=== PATIENT | female | born 1940 | race Hispanic/Latino ===

== ENCOUNTER 2016-05-10 23:46 | Observation (INO) | payer MEDICARE ==
[2016-05-10 23:51] VITALS: BMI 25.7
--- NOTE | 2016-05-10 23:51 | ED PDOC ---
Arrival/HPI - General Time Seen by Provider: 05/10/16 23:48 Historian: Patient - History of Present Illness Narrative History of Present Illness (Text): 05/10/16 23:51 Marisol Dsouza is a 75 year old female, whose past medical history includes CAD with 3 cardiac stents, Type 2 diabetes, hypertension, hyperlipidemia, hyperparathyroidism, and cholecystectomy, who presents to the Emergency department accompanied by family complaining of chest pain. Patient states tonight she began experiencing mid-sternal chest pain radiating to her left shoulder, arm, and neck with associated palpitations. Patient notes she experienced similar symptoms earlier this week which resolved on its own. Patient denies any fever, chills, shortness of breath, nausea, vomiting, diarrhea, urinary symptoms, back pain, headache, dizziness, or any other complaints. PMD: Dr. Antoine Marcelo Analog Circuit Designer: Dr. Frederick Molina Time/Duration: Other (tonight) Symptom Onset: Gradual Symptom Course: Unchanged Activities at Onset: Rest, Light Context: Home Past Medical History - Provider Review Nursing Documentation Reviewed: Yes - Infectious Disease Hx of Infectious Diseases: None - Tetanus Immunization Tetanus Immunization: Unknown - Cardiac Hx Pacemaker: No - Neurological Hx Paralysis: No - HEENT Hx Cataracts: Yes (rt eye) Hx Epistaxis: Yes ("once in a while") Hx Glaucoma: Yes - Renal Hx Kidney Stones: Yes - Endocrine/Metabolic Hx Hyperthyroidism: Yes - Hematological/Oncological Hx Blood Transfusions: No Hx Blood Transfusion Reaction: No - Musculoskeletal/Rheumatological Hx Musculoskeletal Disorders: Yes (ARTHRITIS) - Psychiatric Hx Emotional Abuse: No Hx Physical Abuse: No Hx Substance Use: No - Surgical History Hx Cardiac Catheterization: Yes Hx Cholecystectomy: Yes Hx Coronary Stent: Yes Hx Hysterectomy: Yes - Anesthesia Hx Anesthesia Reactions: No Hx Malignant Hyperthermia: No - Suicidal Assessment Feels Threatened In Home Enviroment: No Family/Social History - Physician Review Nursing Documentation Reviewed: Yes Family/Social History: No Known Family HX Smoking Status: Never Smoked Hx Alcohol Use: No Hx Substance Use: No Hx Substance Use Treatment: No Allergies/Home Meds Allergies/Adverse Reactions: Allergies diltiazem HCl [From Cardizem] Adverse Reaction (Severe, Verified 05/10/16 23:52) HEADACHE nitroglycerin [From Nitro-Dur] Adverse Reaction (Severe, Verified 05/10/16 23:52 ) HEADACHE aspirin Adverse Reaction (Unknown, Verified 05/10/16 23:52) AVOIDS MED UNKNOWN ANTIBIOTIC Allergy (Uncoded 05/10/16 23:52) RASH Home Medications: Home Meds Medication Instructions Recorded Confirmed Atorvastatin Calcium [Lipitor] 20 mg PO DIN 04/08/13 05/11/16 Fenofibrate [Lofibra] 160 mg PO DIN 04/08/13 05/11/16 Dexlansoprazole [Dexilant] 60 mg PO DAILY 10/25/15 05/11/16 Glimepiride 1 mg PO BID 10/26/15 05/11/16 amLODIPine [Norvasc] 5 mg PO QAM 10/26/15 05/11/16 Cholecalciferol (Vitamin D3) 2,000 unit PO DAILY 05/11/16 05/11/16 [Vitamin D3] Lactobacillus Rhamnosus GG 1 each PO DAILY 05/11/16 05/11/16 [Culturelle] Lisinopril [Zestril] 10 mg PO DAILY 05/11/16 05/11/16 Methylcellulose [Citrucel] 500 mg PO DAILY 05/11/16 05/11/16 Simethicone [Gas-X] 125 mg PO BID 05/11/16 05/11/16 Review of Systems - Physician Review All systems were reviewed & negative as marked: Yes - Review of Systems Constitutional: Normal. absent: Fevers Eyes: Normal ENT: Normal Respiratory: Normal. absent: SOB, Cough Cardiovascular: Chest Pain, Palpitations Gastrointestinal: Normal. absent: Abdominal Pain, Diarrhea, Nausea, Vomiting Genitourinary Female: Normal. absent: Dysuria, Frequency, Hematuria, Urine Output Changes Musculoskeletal: Normal. absent: Back Pain, Neck Pain Skin: Normal. absent: Rash Neurological: Normal. absent: Headache, Dizziness Endocrine: Normal Hemo/Lymphatic: Normal Psychiatric: Normal Physical Exam Vital Signs Reviewed: Yes Vital Signs Temp Pulse Resp BP Pulse Ox 05/11/16 02:42 82 16 150/79 98 05/11/16 00:40 83 16 156/81 H 97 05/10/16 23:56 98.2 F 88 14 162/89 H 98 Temperature: Afebrile Blood Pressure: Normal Pulse: Regular Respiratory Rate: Normal Appearance: Positive for: Well-Appearing, Non-Toxic, Comfortable Pain Distress: None Mental Status: Positive for: Alert and Oriented X 3 - Systems Exam Head: Present: Atraumatic, Normocephalic Pupils: Present: PERRL Extroacular Muscles: Present: EOMI Conjunctiva: Present: Normal Mouth: Present: Moist Mucous Membranes Neck: Present: Normal Range of Motion Respiratory/Chest: Present: Clear to Auscultation, Good Air Exchange. No: Respiratory Distress, Accessory Muscle Use Cardiovascular: Present: Regular Rate and Rhythm, Normal S1, S2. No: Murmurs Abdomen: Present: Normal Bowel Sounds. No: Tenderness, Distention, Peritoneal Signs Back: Present: Normal Inspection Upper Extremity: Present: Normal Inspection. No: Cyanosis, Edema Lower Extremity: Present: Normal Inspection. No: Edema Neurological: Present: GCS=15, CN II-XII Intact, Speech Normal Skin: Present: Warm, Dry, Normal Color. No: Rashes Psychiatric: Present: Alert, Oriented x 3, Normal Insight, Normal Concentration Medical Decision Making ED Course and Treatment: 05/10/16 23:51 Impression: 75 year old female complaining of chest pain and palpitations tonight. Plan: -- EKG -- CXR -- Labs, cardiac enzymes, D-dimer -- UA -- Reassess and disposition Prior Visits: Notes and results from previous visits were reviewed. On 10/28/2015, pt had cardiac catheterization performed with 2 stents placed. Progress Notes: Reviewed EKG, sinus tachycardia at 103 bpm. Non-specific ST/T wave changes. 05/11/16 01:26 Reviewed radiology, Chest X-ray shows no active disease. 05/11/16 01:[address] Porter, covering for Dr. Estrada, who is aware and agrees with plan. Pt will go to Telemetry observation for chest pain. Case discussed with medical education specialist python django developer, who is aware and agrees with plan. Pt is no acute distress. Discussed results and hospital observation plan with pt , who is aware and verbalizes understanding. 05/13/16 19:34 - Lab Interpretations Lab Results: 05/11/16 00:30 05/11/16 00:30 Lab Results 05/11/16 00:30: WBC 5.3, RBC 4.38, Hgb 13.9, Hct 40.5, MCV 92.5, MCH 31.7, MCHC 34.3, RDW 12.7, Plt Count 194, MPV 10.6, Gran % 52.3, Lymph % (Auto) 39.6 H, [place] % (Auto) 7.3 H, Eos % (Auto) 0.6 L, Baso % (Auto) 0.2, Gran # 2.79, Lymph # 2.1, Bates # 0.4, Eos # 0.0, Baso # 0.01, D-Dimer, Quantitative 0.30, Sodium 136, Potassium 3.4 L, Chloride 100, Carbon Dioxide 29, Anion Gap 10, BUN 23 H, Creatinine 0.8, Est GFR ( Amer) > 60, Est GFR (Non-Af Amer) > 60, Random Glucose 241 H, Calcium 10.0, Magnesium 1.5 L, Total Bilirubin 0.4, AST 24, ALT 22, Alkaline Phosphatase 55, Lactate Dehydrogenase 350, Total Creatine Kinase 35 , Troponin I < 0.01, Total Protein 6.8, Albumin 3.8, Globulin 3.0, Albumin/ Globulin Ratio 1.3 I have reviewed the lab results: Yes - RAD Interpretation Narrative RAD Interpretations (Text): Chest X-ray shows no active disease. Radiology Orders: 05/10/16 23:59 CHEST PORTABLE [RAD] Stat Criminalist: ED Physician - EKG Interpretation Interpreted by ED Physician: Yes Type: 12 lead EKG - Medication Orders Current Medication Orders: Discontinued Medications [facility]odip[facility]) [facility] [place] [facility] Admin: 05/11/16 10:49 Dose: Not Given Non-Admin Reason: Patient in Cardiology Atorvastatin Calcium (Lipitor) 20 mg PO DIN [facility] Last Admin: 05/11/16 18:11 Dose: 20 MG Atropine Sulfate (Atropine) Confirm Administered Dose 1 mg .ROUTE .STK-MED ONE Stop: 05/11/16 09:34 Last Admin: 05/11/16 11:09 Dose: Bivalirudin (Angiomax) Confirm Administered Dose 250 mg IV .STK-MED ONE Stop: 05/11/16 09:35 Last Admin: 05/11/16 11:09 Dose: Cholecalciferol (Vitamin D) 2,000 iu PO DAILY [facility] Last Admin: 05/11/16 10:49 Dose: Not Given Non-Admin Reason: Patient in Cardiology Fenofibrate (Tricor) 145 mg PO DIN [facility] Last Admin: 05/11/16 18:11 Dose: 145 MG Fentanyl (Fentanyl) Confirm Administered Dose 100 mcg .ROUTE .STK-MED ONE Stop: 05/11/16 09:36 Last Admin: 05/11/16 10:29 Dose: 100 MCG Comments: Dr. Frederick Molina adm. Fentnayl 50 mcg IV @ 1029, an additional dose of Fentanyl 50 mcg IV was given @ 1040 MAR Pain Assessment Document 05/11/16 10:29 KPA (Rec: 05/11/16 11:10 KPA [facility] [id number]) Pain Reassessment Is this a pain reassessment? No Sleep Is patient sleeping during reassessment? No Presence of Pain Presence of Pain Yes Fentanyl (Fentanyl) Confirm Administered Dose 100 mcg .ROUTE .STK-MED ONE Stop: 05/11/16 10:27 Last Admin: 05/11/16 11:11 Dose: Magnesium Sulfate 2 gm/ Sodium (Chloride) 104 mls @ 102 mls/hr IVPB ONCE ONE Stop: 05/11/16 05:01 Last Admin: 05/11/16 04:28 Dose: 102 MLS/HR eMAR Start Stop Document 05/11/16 04:28 SBO (Rec: 05/11/16 04:29 SBO [id number]) Intravenous Solution Start Date 05/11/16 Start Time 04:29 End Date 05/11/16 End time 05:30 Total Infusion Time 61 Heparin Sodium (Porcine) (Heparin 1000 Units/500 Ml Ns) Confirm Administered Dose 1,500 mls @ ud IV .STK-MED ONE Stop: 05/11/16 09:35 Sodium Chloride (Sodium Chloride 0.9%) 1,000 mls @ 100 mls/hr IV .Q10H [facility] Stop: 05/11/16 16:00 Last Admin: 05/11/16 11:51 Dose: Insulin Human Lispro (Humalog Low) 0 units SC ACHS MEGAN PRN Reason: Protocol Last Admin: 05/11/16 16:30 Dose: 3 UNITS MAR Blood Glucose Document 05/11/16 16:30 RKO (Rec: 05/11/16 18:13 RKO [id number]) Blood Glucose Finger Stick Blood Glucose (70-120) 264 Subcutaneous Administrations Document 05/11/16 16:30 RKO (Rec: 05/11/16 18:13 RKO [id number]) Injection Site MAR Injection Site Right Arm Charges for Administration # of Subcutaneous Administrations 1 Iodixanol (Visipaque 320 Mg/Ml 100 Ml) Confirm Administered Dose 100 ml IV .STK- MED ONE Stop: 05/11/16 09:36 Iodixanol (Visipaque 320 Mg/Ml 200 Ml) Confirm Administered Dose 200 ml IV .K- MED ONE Stop: 05/11/16 09:36 Iohexol (Omnipaque 350mg/Ml 50 Ml) Confirm Administered Dose 50 ml .ROUTE .K- MED ONE Stop: 05/11/16 09:36 Lidocaine HCl (Lidocaine 2% 20ml Vial) Confirm Administered Dose 20 ml .ROUTE .K-MED ONE Stop: 05/11/16 09:34 Lisinopril (Zestril) 10 mg PO DAILY [facility] Last Admin: 05/11/16 10:49 Dose: Not Given Non-Admin Reason: Patient in Cardiology Magnesium Oxide (Mag-Ox) 400 mg PO STAT STA Stop: 05/11/16 01:24 Last Admin: 05/11/16 01:38 Dose: 400 MG Midazolam HCl (Versed Inj) Confirm Administered Dose 2 mg .ROUTE .K-MED ONE Stop: 05/11/16 09:35 Last Admin: 05/11/16 10:29 Dose: 2 MG Comments: Dr. Frederick Molina adm. Versed 2 mg IV @ 1029 Midazolam HCl (Versed Inj) Confirm Administered Dose 2 mg .ROUTE .K-MED ONE Stop: 05/11/16 10:26 Last Admin: 05/11/16 10:40 Dose: 2 MG Non-Formulary Medication (Lactobacillus Rhamnosus Gg [Culturelle]) 1 each PO DAILY [facility] Pantoprazole Sodium (Protonix Ec Tab) 40 mg PO ACB [facility] Last Admin: 05/11/16 08:23 Dose: 40 MG Phenylephrine HCl (Phenylephrine Inj) Confirm Administered Dose 10 mg .ROUTE .STK-MED ONE Stop: 05/11/16 09:43 Potassium Chloride (K-Dur 20 Meq Er Tab) 20 meq PO STAT STA Stop: 05/11/16 01:25 Last Admin: 05/11/16 01:38 Dose: 20 MEQ Potassium Chloride (Potassium Chloride Oral Soln) 40 meq PO ONCE ONE Stop: 05/11/16 03:01 Last Admin: 05/11/16 04:28 Dose: 40 MEQ Prasugrel (Effient) 10 mg PO DAILY [facility] Last Admin: 05/11/16 09:56 Dose: 10 MG Simethicone (Mylicon Liq) 125 mg PO BID [facility] Last Admin: 05/11/16 18:12 Dose: 125 MG - Leigh Statement The provider has reviewed the documentation as recorded by the Leigh Estrada Provider Attestation: All medical record entries made by the Leigh were at my direction and personally dictated by me. I have reviewed the chart and agree that the record accurately reflects my personal performance of the history, physical exam, medical decision making, and the department course for this patient. I have also personally directed, reviewed, and agree with the discharge instructions and disposition. Disposition/Present on Arrival - Present on Arrival Any Indicators Present on Arrival: No History of DVT/PE: No History of Uncontrolled Diabetes: No Urinary Catheter: No History Surgical Site Infection Following: None - Disposition Have Diagnosis and Disposition been Completed?: Yes Diagnosis: Chest pain Disposition: HOSPITALIZED Disposition Time: 01:50 Condition: GOOD
[2016-05-11 00:43] LABS: ADD MANUAL DIFF? NO
[2016-05-11 00:47] LABS: BASO # 0.01 K/mm3 (0.0-2.0); BASO % 0.2 % (0.0-3.0); EOS % 0.6 % (1.5-5.0); GRAN # 2.79 (1.4-6.5); GRAN % 52.3 % (50.0-68.0); HEMATOCRIT 40.5 % (36.0-48.0); LYMPH # 2.1 (1.2-3.4); LYMPH % 39.6 % (22.0-35.0); MEAN CELL VOLUME 92.5 fL (80.0-105.0); MEAN CORPUSCULAR HEMOGLOBIN 31.7 pg (25.0-35.0); MEAN CORPUSCULAR HGB CONC 34.3 g/dl (31.0-37.0); MEAN PLATELET VOLUME 10.6 fl (7.0-11.0); MONO # 0.4 (0.1-0.6); MONO % 7.3 % (1.0-6.0); PLATELET COUNT 194 10^3/uL (120.0-450.0); RED CELL DISTRIBUTION WIDTH 12.7 % (11.5-14.5); WHITE BLOOD COUNT 5.3 10^3/ul (4.5-11.0)
[2016-05-11 01:05] LABS: ALB/GLOB RATIO 1.3 (1.1-1.8); ALKALINE PHOSPHATASE 55 U/L (38-133); ALT/SGPT 22 U/L (7-56); AST/SGOT 24 U/L (15-39); BILIRUBIN,TOTAL 0.4 mg/dL (0.2-1.3); BLOOD UREA NITROGEN 23 mg/dL (7-21); CARBON DIOXIDE 29 mmol/L (21-33); CHLORIDE 100 mmol/L (98-107); GFR AFRICAN-AMERICAN > 60; GLUCOSE,RANDOM 241 mg/dL (70-110); MAGNESIUM 1.5 mg/dL (1.7-2.2); POTASSIUM 3.4 mmol/L (3.6-5.0); SODIUM 136 mmol/L (132-148); TOTAL PROTEIN 6.8 g/dL (5.8-8.3)
[2016-05-11 01:21] LABS: TROPONIN I < 0.01 ng/mL
[2016-05-11] MEDS ORDERED: Magnesium Oxide 400 mg Tab UD PO STA (01:23)
[2016-05-11] MEDS ORDERED: Potassium Chloride 20 mEq ER Tab PO STA (01:24)
--- NOTE | 2016-05-11 02:55 | CP.PCM.HP ---
History of Present Illness - History of Present Illness History of Present Illness: CC: Chest pain, shortness of breath HPI: This is a 75 yo F with PMH CAD s/p 3 stents, Type 2 diabetes, HTN , HLD, hyperparathyroidism, and cholecystectomy who presents with complaint of left-sided chest pain radiating into her left shoulder, arm, and neck, with some shortness of breath and dizziness. Per patient, she experienced similar chest pain one night prior, but it self resolved. Chest pain returned this AM however, and progressively worsened throughout the day, with only some relief provided with PO tylenol. Patient reports that this evening, the pain became worse, and she became short of breath and dizzy, making her concerned that she was having a heart issue and prompting her to present to the ED. At time of exam, patient notes some chest discomfort at the same site persisting, but is overall improved. Denies fevers/chills, diaphoresis, vision changes, dysphagia , pain with breathing, nausea/emesis, abdominal pain, diarrhea, dysuria/ hematuria, focal weakness, lower extremity swelling/pain. Does admit to some claudication pains in her legs when walking for a prolonged period. PMH: As above PSH: Coronary stent placement x3, Cholecystectomy SHx: Former smoker (quit ~50 yrs prior, 1-4 ppd for 10-15 years), Rare alcohol ( social drinker, none in recent years), denies illicits/IVDA PMD: Dr. Estrada Present on Admission - Present on Admission Any Indicators Present on Admission: No History of DVT/PE: No History of Uncontrolled Diabetes: No Review of Systems - Constitutional Constitutional: absent: Chills, Fever - EENT Eyes: absent: Blurred Vision, Change in Vision, Loss of Peripheral Vision, Loss of Vision Ears: Dizziness (only this evening when chest pain worsened, none at time of exam) Nose/Mouth/Throat: absent: Dysphagia, Sore Throat, Neck Pain - Cardiovascular Cardiovascular: Chest Pain at Rest (self-resolved episode 1 day prior, new progressively worsening episode today, partial relief with PO tylenol, improved but not completely resolved at time of exam), Dyspnea (acute shortness of breath concurrent with dizziness and worsened chest pain, resolved prior to exam ), Pain Radiating to Arm/Neck/Jaw (radiates to left shoulder/auxilla/arm and neck), Rapid Heart Rate. absent: Diaphoresis, Edema, Leg Edema, Syncope Additional comments: near-syncope, no syncope - Respiratory Respiratory: Dyspnea (acute shortness of breath concurrent with dizziness and worsened chest pain, resolved prior to exam). absent: Cough, Pain on Inspiration - Gastrointestinal Gastrointestinal: absent: Abdominal Pain, Constipation, Diarrhea, Dysphagia, Nausea, Vomiting - Genitourinary Genitourinary: Urinary Frequency (longstanding, unchanged). absent: Difficulty Urinating, Dysuria, Flank Pain, Hematuria - Musculoskeletal Musculoskeletal: Radiating Pain into Limb (left-sided chest pain radiating into left arm). absent: Neck Pain, Numbness - Integumentary Integumentary: absent: Pruritus, Rash - Neurological Neurological: Dizziness. absent: Confusion, Numbness, Focal Weakness, Loss of Vision, Syncope, Vertigo, Weakness, Other Visual Disturbances Additional comments: Near-syncope, but no syncope - Psychiatric Psychiatric: Anxiety - Endocrine Endocrine: absent: Fatigue Past Patient History - Infectious Disease Hx of Infectious Diseases: None - Tetanus Immunizations Tetanus Immunization: Unknown - Past Social History Smoking Status: Never Smoked - CARDIAC Hx Pacemaker: No - PULMONARY Hx Respiratory Disorders: No - NEUROLOGICAL Hx Paralysis: No - HEENT Hx Cataracts: Yes (rt eye) Hx Epistaxis: Yes ("once in a while") Hx Glaucoma: Yes - RENAL Hx Kidney Stones: Yes - ENDOCRINE/METABOLIC Hx Hyperthyroidism: Yes - HEMATOLOGICAL/ONCOLOGICAL Hx Blood Transfusions: No Hx Blood Transfusion Reaction: No - INTEGUMENTARY Hx Dermatological Problems: No - MUSCULOSKELETAL/RHEUMATOLOGICAL Hx Musculoskeletal Disorders: Yes (ARTHRITIS) - GASTROINTESTINAL Hx Gastrointestinal Disorders: No - GENITOURINARY/GYNECOLOGICAL Hx Genitourinary Disorders: No - PSYCHIATRIC Hx Emotional Abuse: No Hx Physical Abuse: No Hx Substance Use: No - SURGICAL HISTORY Hx Cardiac Catheterization: Yes Hx Cholecystectomy: Yes Hx Coronary Stent: Yes Hx Hysterectomy: Yes - ANESTHESIA Hx Anesthesia Reactions: No Hx Malignant Hyperthermia: No Meds Allergies/Adverse Reactions: Allergies Allergy/AdvReac Type Severity Reaction Status Date / Time diltiazem HCl [From Cardizem] AdvReac Severe HEADACHE Verified 05/10/16 23:52 nitroglycerin AdvReac Severe HEADACHE Verified 05/10/16 23:52 [From Nitro-Dur] aspirin AdvReac Unknown AVOIDS MED Verified 05/10/16 23:52 UNKNOWN ANTIBIOTIC Allergy RASH Uncoded 05/10/16 23:52 Physical Exam - Constitutional Appears: Well, Non-toxic, No Acute Distress - Head Exam Head Exam: ATRAUMATIC, NORMAL INSPECTION, NORMOCEPHALIC - Eye Exam Eye Exam: EOMI, Normal appearance. absent: Conjunctival injection, Scleral icterus Pupil Exam: absent: Irregular, Unequal - ENT Exam ENT Exam: Mucous Membranes Moist - Respiratory Exam Respiratory Exam: Clear to Auscultation Bilateral, NORMAL BREATHING PATTERN. absent: Accessory Muscle Use, Chest Wall Tenderness, Decreased Breath Sounds, Rales, Rhonchi, Wheezes - Cardiovascular Exam Cardiovascular Exam: Tachycardia, REGULAR RHYTHM, +S1, +S2. absent: Bradycardia , Irregular Rhythm, RRR, +S4 Additional comments: rapid rate regular rhythm - GI/Abdominal Exam GI & Abdominal Exam: Normal Bowel Sounds, Soft. absent: Diminished Bowel Sounds , Distended, Firm, Hyperactive Bowel Sounds, Hypoactive Bowel Sounds, Organomegaly, Rigid, Tenderness - Extremities Exam Extremities exam: Positive for: normal inspection, pedal pulses present. Negative for: calf tenderness, joint swelling, pedal edema, tenderness - Back Exam Back exam: NORMAL INSPECTION. absent: rash noted - Neurological Exam Neurological exam: Alert, Oriented x3 Additional comments: answering questions and following commands appropriately - Psychiatric Exam Psychiatric exam: Normal Affect, Normal Mood - Skin Skin Exam: Dry, Intact, Normal Color, Warm Results - Vital Signs Recent Vital Signs: Last Vital Signs Temp 98.2 F 05/10/16 23:56 Pulse 82 05/11/16 02:42 Resp 16 05/11/16 02:42 BP 150/79 05/11/16 02:42 Pulse Ox 98 05/11/16 02:42 - Labs Result Diagrams: 05/11/16 00:30 05/11/16 00:30 Labs: Laboratory Results - last 24 hr 05/11/16 00:30 WBC 5.3 RBC 4.38 Hgb 13.9 Hct 40.5 MCV 92.5 MCH 31.7 MCHC 34.3 RDW 12.7 Plt Count 194 MPV 10.6 Gran % 52.3 Lymph % (Auto) 39.6 H [place] % (Auto) 7.3 H Eos % (Auto) 0.6 L Baso % (Auto) 0.2 Gran # 2.79 Lymph # 2.1 [place] # 0.4 Eos # 0.0 Baso # 0.01 D-Dimer, Quantitative 0.30 Sodium 136 Potassium 3.4 L Chloride 100 Carbon Dioxide 29 Anion Gap 10 BUN 23 H Creatinine 0.8 Est GFR ( Amer) > 60 Est GFR (Non-Af Amer) > 60 Random Glucose 241 H Calcium 10.0 Magnesium 1.5 L Total Bilirubin 0.4 AST 24 ALT 22 Alkaline Phosphatase 55 Lactate Dehydrogenase 350 Total Creatine Kinase 35 Troponin I < 0.01 Total Protein 6.8 Albumin 3.8 Globulin 3.0 Albumin/Globulin Ratio 1.3 Assessment & Plan - Assessment and Plan (Free Text) Assessment: This is a 75 yo F with PMH CAD s/p 3 stents, Type 2 diabetes, HTN, HLD , hyperparathyroidism, and cholecystectomy who presents with complaint of left- sided chest pain radiating into her left shoulder, arm, and neck, with some shortness of breath and dizziness. She is being admitted for ACS rule-out vs anxiety vs hypoglycemic episode. Plan: 1) Left-sided chest pain with radiation and shortness of breath -ACS vs PE vs costochondritis vs hypoglycemic episode vs Pneumonia, may be element of anxiety superimposed as well -Chest pain not reproducible on exam, so less likely costochondritis, but some alleviation of pain with tylenol -D-Dimer 0.30, no lower extremity swelling/erythema/tenderness, and no prior history of DVT/PE, so PE less likely -No leukocytosis, afebrile, and unremarkable CXR, unlikely pneumonia -Trop x1 negative, trending 2 more q8 -EKG in ED notable for sinus tachy at 103, QTc prolongation at 495, no abnormal- appearing intervals; repeat EKG in AM -Cardio consulted, appreciate any recs -No ASA in the ED due to stated allergy to ASA -Continue home cardiac Meds -Glucose at time of acutely worsening symptoms not checked, but patient reports history of hypoglycemic episodes; glucose 241 on admission, hold home oral hypoglycemics in favor of sliding scale insulin and accuchecks ACHS -heart healthy consistent carb diet 2) Electrolyte disturbances -mild hypokalemia of 3.4, hypomagnesemia at 1.5 -repleting both, recheck on AM labs and replete further as needed 3) DM2 -hold home oral hypoglycemic in favor of sliding scale insulin and accuchecks ACHS -Hx of hypoglycemic episodes per patient, glucose 241 on admit 3) HTN -continue home antihypertensives 4) HLD -continue home statin 5) Hyperparathyroid -Normal calcium levels on admission labs, f/u AM labs Dispo: Telemetry obs admission, pending repeat trops and EKG, pending Cardio's input FEN: Heart-healthy consistent carb diet Access: Peripheral IV Consults: Cardio Ppx: Protonix for GI, SCDs for DVT Patient reviewed and discussed with attending, Dr. Porter. - Date & Time Date: 05/11/16 Time: 03:14 Decision To Admit - Pt Status Changed To: Hospital Disposition Of: Observation - . Bed Request Type: Telemetry
[2016-05-11] MEDS ORDERED: Potassium Chloride 40 mEq/30 ml LIQ UD PO ONE (03:00)
[2016-05-11] MEDS ORDERED: Magnesium Sulfate 2 GM in Sodium Chloride 0.9% 100 ML IVPB ONE (04:00)
[2016-05-11 06:03] VITALS: O2SAT 97
[2016-05-11] MEDS ORDERED: Pantoprazole 40 mg EC Tab PO SCH (07:30)
[2016-05-11 07:55] LABS: ADD MANUAL DIFF? NO
[2016-05-11 08:07] LABS: BASO # 0.01 K/mm3 (0.0-2.0); BASO % 0.2 % (0.0-3.0); EOS # 0.1 (0.0-0.7); EOS % 0.9 % (1.5-5.0); GRAN # 2.77 (1.4-6.5); GRAN % 50.8 % (50.0-68.0); HEMATOCRIT 40.7 % (36.0-48.0); LYMPH # 2.2 (1.2-3.4); LYMPH % 39.8 % (22.0-35.0); MEAN CELL VOLUME 92.7 fL (80.0-105.0); MEAN CORPUSCULAR HGB CONC 33.4 g/dl (31.0-37.0); MEAN PLATELET VOLUME 10.8 fl (7.0-11.0); MONO # 0.5 (0.1-0.6); MONO % 8.3 % (1.0-6.0); PLATELET COUNT 220 10^3/uL (120.0-450.0); RED CELL DISTRIBUTION WIDTH 12.8 % (11.5-14.5); WHITE BLOOD COUNT 5.5 10^3/ul (4.5-11.0)
[2016-05-11 08:28] LABS: ALB/GLOB RATIO 1.3 (1.1-1.8); ALKALINE PHOSPHATASE 55 U/L (38-133); ALT/SGPT 19 U/L (7-56); AST/SGOT 22 U/L (15-39); BILIRUBIN,TOTAL 0.6 mg/dL (0.2-1.3); BLOOD UREA NITROGEN 19 mg/dL (7-21); CALCIUM 10.3 mg/dL (8.4-10.5); CARBON DIOXIDE 28 mmol/L (21-33); CHLORIDE 104 mmol/L (98-107); GFR AFRICAN-AMERICAN > 60; GLUCOSE,RANDOM 140 mg/dL (70-110); MAGNESIUM 2.4 mg/dL (1.7-2.2); PHOSPHOROUS 2.9 mg/dL (2.5-4.5); POTASSIUM 4.7 mmol/L (3.6-5.0); SODIUM 141 mmol/L (132-148); TOTAL PROTEIN 7.2 g/dL (5.8-8.3)
[2016-05-11 08:44] LABS: TROPONIN I < 0.01 ng/mL
[2016-05-11] MEDS ORDERED: Lidocaine 2% Inj (20ml) ONE (09:33)
[2016-05-11] MEDS ORDERED: Midazolam 2 MG/2 ML VIAL ONE ×2 (09:34→10:25)
[2016-05-11] MEDS ORDERED: Iodixanol 320 MG/ML 200 ML BOTTLE IV ONE (09:35)
[2016-05-11] MEDS ORDERED: Iodixanol 320 MG/ML 100 ML BOTTLE IV ONE (09:35)
[2016-05-11] MEDS ORDERED: Iohexol 350mgl/ml 50 ML ONE (09:35)
[2016-05-11] MEDS ORDERED: Phenylephrine 10 mg/ml Inj ONE (09:42)
--- NOTE | 2016-05-11 09:48 | RAD ---
HISTORY: cp COMPARISON: No prior. FINDINGS: LUNGS: No active pulmonary disease. PLEURA: No significant pleural effusion identified, no pneumothorax apparent. CARDIOVASCULAR: Normal. OSSEOUS STRUCTURES: No significant abnormalities. VISUALIZED UPPER ABDOMEN: Normal. OTHER FINDINGS: None. IMPRESSION: No active disease.
[2016-05-11] MEDS ORDERED: LACTOBACILLUS RHAMNOSUS GG PO SCH (10:00)
--- NOTE | 2016-05-11 10:08 | CARD ---
APPROVED REPORT EKG Measurement Heart [id number] <Conclusion> Sinus tachycardiaSmall q waves 2,3,F SSTW changes Prolonged QTc.
--- NOTE | 2016-05-11 10:26 | CARD ---
APPROVED REPORT EKG Measurement Heart [id number] <Conclusion> Normal sinus rhythm ST elevations 2.3.F, no change c/w ECG 05/10/16
[2016-05-11] MEDS: Insulin Lispro (humaLOG) LOW Coverage SC SCH ×3 (10:48→16:30)
[2016-05-11] MEDS: Simethicone 40 mg/0.6 ml Liquid (30 ml) PO SCH ×2 (10:49→18:12)
[2016-05-11] MEDS ORDERED: Sodium Chloride 0.9% 1,000 ML IV SCH (11:15)
--- NOTE | 2016-05-11 11:24 | CARDCATH ---
PROCEDURE DATE: 05/11/2016 HISTORY OF PRESENT ILLNESS: The patient is a 75-year-old woman with multiple cardiac risk factors an d multiple PTCA and stents in the past who presents with recurrence of angina. Myocardial infarction was ruled out. Because of her ongoing symptoms including symptoms at rest, cardiac catheterization was recommended. PROCEDURE: Left heart catheterization with coronary angiography and left ventriculogram. The right femoral artery was cannulated with a 6-Icelandic sheath. There were no complications. The findings on catheterization revealed a left ventricle that contracted normally. Estimated ejecti on fraction is 60%. Her coronary anatomy revealed the left main artery was unremarkable. The LAD revealed diffuse intimal irregularities with multiple patent stents. The mid portion of the LAD revealed an eccentric 50% stenosis in the mid LAD stent. The diagonal vessels were free of significant disease. The circumflex artery and obtuse marginal branches were unremarkable. The RCA was selectively cannulized and found to be a dominant vessel. The RCA revealed intimal irreg ularities without significant stenosis. Angio-Seal was used to close the femoral artery site. The patient tolerated the procedure well. In summary, the procedure revealed normal left ventricular function. A 50% in-stent stenosis of mid left anterior descending. The rest of the stents were widely patent Given these findings, the patient's chest pain is not of cardiac origin. An investigation into a non cardiac source of chest pain would be appropriate. We will continue her on a cardiac risk reduction program. Jet Molina MD cc: [id number] TT: 05/11/2016 11:23:58 en
[2016-05-11 17:42] VITALS: BP 144/71; PULSE 84; RESP 20; TEMP 97.9
--- NOTE | 2016-05-11 18:24 | CP.PCM.DIS ---
Provider - Provider Date of Admission: 05/11/16 01:49 Attending physician: Francisco Estrada MD Time Spent in preparation of Discharge (in minutes): 35 Hospital Course - Lab Results Lab Results: Most Recent Lab Values WBC 5.5 10^3/ul (4.5-11.0) 05/11/16 07:30 RBC 4.39 10^6/uL (3.5-6.1) 05/11/16 07:30 Hgb 13.6 gm/dL (12.0-16.0) 05/11/16 07:30 Hct 40.7 % (36.0-48.0) 05/11/16 07:30 MCV 92.7 fL (80.0-105.0) 05/11/16 07:30 MCH 31.0 pg (25.0-35.0) 05/11/16 07:30 MCHC 33.4 g/dl (31.0-37.0) 05/11/16 07:30 RDW 12.8 % (11.5-14.5) 05/11/16 07:30 Plt Count 220 10^3/uL (120.0-450.0) 05/11/16 07:30 MPV 10.8 fl (7.0-11.0) 05/11/16 07:30 Gran % 50.8 % (50.0-68.0) 05/11/16 07:30 Lymph % (Auto) 39.8 % (22.0-35.0) H 05/11/16 07:30 [place] % (Auto) 8.3 % (1.0-6.0) H 05/11/16 07:30 Eos % (Auto) 0.9 % (1.5-5.0) L 05/11/16 07:30 Baso % (Auto) 0.2 % (0.0-3.0) 05/11/16 07:30 Gran # 2.77 (1.4-6.5) 05/11/16 07:30 Lymph # 2.2 (1.2-3.4) 05/11/16 07:30 [place] # 0.5 (0.1-0.6) 05/11/16 07:30 Eos # 0.1 (0.0-0.7) 05/11/16 07:30 Baso # 0.01 K/mm3 (0.0-2.0) 05/11/16 07:30 D-Dimer, Quantitative 0.30 mg/L FEU (0-0.50) 05/11/16 00:30 Sodium 141 mmol/L (132-148) 05/11/16 07:30 Potassium 4.7 mmol/L (3.6-5.0) 05/11/16 07:30 Chloride 104 mmol/L (98-107) 05/11/16 07:30 Carbon Dioxide 28 mmol/L (21-33) 05/11/16 07:30 Anion Gap 14 (10-20) 05/11/16 07:30 BUN 19 mg/dL (7-21) 05/11/16 07:30 Creatinine 0.8 mg/dL (0.5-1.4) 05/11/16 07:30 Est GFR ( Amer) > 60 05/11/16 07:30 Est GFR (Non-Af Amer) > 60 05/11/16 07:30 POC Glucose (mg/dL) 264 mg/dL (65-110) H 05/11/16 15:55 Random Glucose 140 mg/dL (70-110) H 05/11/16 07:30 Hemoglobin A1c 7.4 % (4.2-6.5) H 05/11/16 07:30 Calcium 10.3 mg/dL (8.4-10.5) 05/11/16 07:30 Phosphorus 2.9 mg/dL (2.5-4.5) 05/11/16 07:30 Magnesium 2.4 mg/dL (1.7-2.2) H 05/11/16 07:30 Total Bilirubin 0.6 mg/dL (0.2-1.3) 05/11/16 07:30 AST 22 U/L (15-39) 05/11/16 07:30 ALT 19 U/L (7-56) 05/11/16 07:30 Alkaline Phosphatase 55 U/L (38-133) 05/11/16 07:30 Lactate Dehydrogenase 350 U/L (333-699) 05/11/16 00:30 Total Creatine Kinase 35 U/L (35-230) 05/11/16 00:30 Troponin I < 0.01 ng/mL 05/11/16 15:50 Total Protein 7.2 g/dL (5.8-8.3) 05/11/16 07:30 Albumin 4.0 g/dL (3.0-4.8) 05/11/16 07:30 Globulin 3.2 gm/dL 05/11/16 07:30 Albumin/Globulin Ratio 1.3 (1.1-1.8) 05/11/16 07:30 - Hospital Course Hospital Course: This is a 75 yo Female with PMH CAD s/p 3 stents, Type 2 diabetes, HTN , HLD, hyperparathyroidism, and cholecystectomy who presents with complaint of left-sided chest pain radiating into her left shoulder, arm, and neck, with some shortness of breath and dizziness. She was admitted for ACS rule-out. Patient experienced similar chest pain earlier this month, she went to primary care provider. She had pulled her muscle while using desire rowing machine during rehab. However the chest pain returned and had progressively worsened throughout the day, with some relief provided with PO Tylenol.Chest pain is reproducible on exam. 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 She was found to have patent stents, no new blockages and normal left ventricular function. Troponins were negative. Patient did not have leukocytosis , she was afebrile, and unremarkable CXR. EKG in ED was notable for sinus tachy at 103, QTc prolongation at 495, no abnormal-appearing intervals.Repeat EKG the following morning also showed sinus tachycardia, with prolong QTc, no abnormal intervals. She had mild hypokalemia of 3.4 and hypomagnesemia at 1.5, both were repleted. Patient is doing well. Discharge Instructions are to follow up with Dr. Estrada in 4-6 days. No new medications were given, she is to continue her home meds.If new symptoms occur, call primary care doctor or go to emergency department. Patient is aware of hospital course. Discharge instructions were discussed with patient in detail, she is in agreement. Discharge diagnosis is muscle strain, non cardiac Chest pain. Discharge Exam - Head Exam Head Exam: ATRAUMATIC, NORMAL INSPECTION, NORMOCEPHALIC - Eye Exam Eye Exam: Normal appearance - ENT Exam ENT Exam: Mucous Membranes Moist - Respiratory Exam Respiratory Exam: Chest Wall Tenderness, Clear to PA & Lateral, NORMAL BREATHING PATTERN. absent: Wheezes, Respiratory Distress, Stridor - Cardiovascular Exam Cardiovascular Exam: REGULAR RHYTHM. absent: Tachycardia, Diastolic murmur, Systolic Murmur - GI/Abdominal Exam GI & Abdominal Exam: Diminished Bowel Sounds, Normal Bowel Sounds, Soft, Unremarkable. absent: Distended, Firm, Tenderness - Extremities Exam Extremities exam: normal inspection - Neurological Exam Neurological exam: Alert, Oriented x3 - Skin Skin Exam: Dry, Intact, Normal Color, Warm Discharge Plan - Follow Up Plan Condition: GOOD Disposition: HOME/ ROUTINE Instructions: Chest Pain (DC), Chest Pain (GEN), Coronary Angioplasty (DC), Coronary Angioplasty (GEN) Additional Instructions: Discharge Instructions - follow up with Dr. Estrada in 4-6 days - Continue home meds - If new symptoms occur, call primary care doctor or go to emergency department Discharge diagnosis - Chest pain
== END 2016-05-11 19:18 | disposition home or self-care (01) ==
LOC: ED 23:46 → ERH 05-11 01:49 → 2RNO 05-11 02:53
PROVIDERS: ADMIT Internal Medicine; ATTEND Internal Medicine
DX: T82.855A Stenosis of coronary artery stent, initial encounter (principal); I25.118 Atherosclerotic heart disease of native coronary artery with other forms of angina pectoris; I10 Essential (primary) hypertension; E87.6 Hypokalemia; E83.42 Hypomagnesemia; E11.9 Type 2 diabetes mellitus without complications; E78.5 Hyperlipidemia, unspecified; E21.3 Hyperparathyroidism, unspecified; Z79.84 Long term (current) use of oral hypoglycemic drugs; Y83.8 Other surgical procedures as the cause of abnormal reaction of the patient, or of later complication, without mention of misadventure at the time of the procedure
CPT/HCPCS: 71010; 80053; 82550; 82948; 83036; 83615; 83735; 84100; 84484; 85025; 85378; 93005; 93458; 99152; 99285; C1760; C1769; C2629; G0378; J1644; J2250; J3010; J3475; J3480; J7040

== ENCOUNTER 2017-04-16 10:20 | Emergency (ER) | payer MEDICARE ==
[2017-04-16 10:20] VITALS: BMI 25.7
[2017-04-16 10:49] VITALS: TEMP 99.3
[2017-04-16] MEDS ORDERED: Sodium Chloride 0.9% 500 ML IV STA (11:11)
--- NOTE | 2017-04-16 11:22 | ED PDOC ---
Arrival/HPI - General Chief Complaint: Abdominal Pain Time Seen by Provider: 04/16/17 10:24 Historian: Patient - History of Present Illness Narrative History of Present Illness (Text): 04/16/17 11:21 A 76 year old female, whose past medical history includes diabetes, hypertension , hyperlipidemia, hyperparathyroidism, cholecystectomy and CAD with 3 stents, presents to the emergency department complaining of abdominal pain for the past month, worsening last night. Patient reports she had gallbladder removed 5 years ago and was seeing several gi doctors. . Patient has a scheduled CT with contrast in a week (04/24/17) and colonoscopy with Dr. Perez,. Patient denies any other complaints at this time. PMD: Dr. Estrada GI: Dr. Perez Practice Performance Manager: Dr. Molina 04/16/17 14:38 Time/Duration: Other (month, worsening last night) Symptom Onset: Sudden Symptom Course: Unchanged Activities at Onset: Rest Context: Home Past Medical History - Provider Review Nursing Documentation Reviewed: Yes - Infectious Disease Hx of Infectious Diseases: None - Tetanus Immunization Tetanus Immunization: Unknown - Reproductive Menopause: No - Cardiac Hx Hypertension: Yes - Pulmonary Hx Respiratory Disorders: Yes Hx Asthma: No Hx Bronchitis: No Hx Chronic Obstructive Pulmonary Disease (COPD): No Hx Emphysema: No Hx Pneumonia: Yes Hx Respiratory Aspiration: No Hx Respiratory Tract Infection: No Hx Sleep Apnea: No Hx Tuberculosis: No - Neurological Hx Paralysis: No - HEENT Hx Cataracts: Yes (rt eye) Hx Epistaxis: Yes ("once in a while") Hx Glaucoma: Yes - Renal Hx Kidney Stones: Yes - Hematological/Oncological Hx Blood Transfusions: No Hx Blood Transfusion Reaction: No - Integumentary Hx Dermatological Disorder: No Hx Basal Cell Carcinoma: No Hx Eczema: No Hx Melanoma: No Hx Psoriasis: No Hx Squamous Cell Carcinoma: No - Gastrointestinal Hx Gastrointestinal Disorders: Yes (bloating and gas) Hx Colostomy: No Hx Crohn's Disease: No Hx Diverticulitis: No Hx Gall Bladder Disease: Yes Hx Gastroesophageal Reflux: No Hx Gastrointestinal Ulcer: No Hx Ileostomy: No Hx Liver Failure: No Hx Pancreatitis: No HX Swallowing Problems: No - Genitourinary/Gynecological Hx Genitourinary Disorders: Yes Hx Hematuria: No Hx Incontinence: No Hx Prostate Problems: No Hx Sexually Transmitted Diseases: No Hx Urinary Tract Infection: Yes - Psychiatric Hx Substance Use: No - Anesthesia Hx Anesthesia Reactions: No Hx Malignant Hyperthermia: No Family/Social History - Physician Review Nursing Documentation Reviewed: Yes Family/Social History: No Known Family HX Smoking Status: Never Smoked Hx Alcohol Use: No Hx Substance Use: No Allergies/Home Meds Allergies/Adverse Reactions: Allergies diltiazem HCl [From Cardizem] Adverse Reaction (Severe, Verified 04/16/17 10:49) HEADACHE nitroglycerin [From Nitro-Dur] Adverse Reaction (Severe, Verified 04/16/17 10:49 ) HEADACHE aspirin Adverse Reaction (Unknown, Verified 04/16/17 10:49) AVOIDS MED UNKNOWN ANTIBIOTIC Allergy (Uncoded 05/10/16 23:52) RASH Home Medications: Home Meds Medication Instructions Recorded Confirmed Atorvastatin Calcium [Lipitor] 10 mg PO DIN 04/08/13 12/13/16 Fenofibrate [Lofibra] 160 mg PO DIN 04/08/13 05/11/16 Dexlansoprazole [Dexilant] 60 mg PO DAILY 10/25/15 05/11/16 Glimepiride 1 mg PO BID 10/26/15 05/11/16 amLODIPine [Norvasc] 5 mg PO QAM 10/26/15 05/11/16 Cholecalciferol (Vitamin D3) 2,000 unit PO DAILY 05/11/16 12/13/16 [Vitamin D3] Lactobacillus Rhamnosus GG 1 each PO DAILY 05/11/16 05/11/16 [Culturelle] Lisinopril [Zestril] 10 mg PO DAILY 05/11/16 05/11/16 Methylcellulose [Citrucel] 500 mg PO DAILY 05/11/16 05/11/16 Simethicone [Gas-X] 125 mg PO BID 05/11/16 05/11/16 Calcitonin,[place],Synthetic 200 iu NS DAILY 12/13/16 12/13/16 [Calcitonin-Marshall] Calcium Carb/Vitamin D3/Vit K1 1 tab PO DAILY 12/13/16 12/13/16 [Citracal Soft Chew] Fenofibrate [Triglide] 160 mg PO DAILY 12/13/16 12/13/16 Lactobacillus Rhamnosus GG 1 each PO DAILY 12/13/16 12/13/16 [Culturelle] Pantoprazole [Protonix] 40 mg PO DAILY 10/18/17 10/18/17 Review of Systems - Physician Review All systems were reviewed & negative as marked: Yes - Review of Systems Constitutional: absent: Fevers Gastrointestinal: Abdominal Pain, Nausea Physical Exam Vital Signs Reviewed: Yes Vital Signs Temp Pulse Resp BP Pulse Ox 04/16/17 14:59 89 16 138/79 100 04/16/17 10:45 99.3 F 94 H 18 142/81 99 Temperature: Afebrile Blood Pressure: Normal Pulse: Regular Respiratory Rate: Normal Appearance: Positive for: Well-Appearing, Non-Toxic, Comfortable Pain Distress: None Mental Status: Positive for: Alert and Oriented X 3 - Systems Exam Head: Present: Atraumatic, Normocephalic Pupils: Present: PERRL Extroacular Muscles: Present: EOMI Conjunctiva: Present: Normal Mouth: Present: Moist Mucous Membranes Neck: Present: Normal Range of Motion Respiratory/Chest: Present: Clear to Auscultation, Good Air Exchange. No: Respiratory Distress, Accessory Muscle Use Cardiovascular: Present: Regular Rate and Rhythm, Normal S1, S2. No: Murmurs Abdomen: Present: Tenderness (epigastric), Normal Bowel Sounds. No: Distention , Peritoneal Signs Back: Present: Normal Inspection Upper Extremity: Present: Normal Inspection. No: Cyanosis, Edema Lower Extremity: Present: Normal Inspection. No: Edema Neurological: Present: GCS=15, CN II-XII Intact, Speech Normal Skin: Present: Warm, Dry, Normal Color. No: Rashes Psychiatric: Present: Alert, Oriented x 3, Normal Insight, Normal Concentration Medical Decision Making ED Course and Treatment: 04/16/17 11:20 Impression: A 76 year old female with abdominal pain and nausea. r/o colitis, pancreatitis, pud, gastritis. Plan: -- EKG -- CT abd/pelvis -- labs -- Urinalysis -- Zofran, Protonix, IV fluids, Tylenol -- Reassess and disposition Prior Visits: Notes and results from previous visits were reviewed. Patient was last seen in the emergency department on 05/10/16 for evaluation of chest pain. Patient was admitted to Telemetry observation for further evaluation. Progress Notes: EKG: Ordered, reviewed, and independently interpreted the EKG. Rate : 93 BPM Rhythm : NSR Interpretation : No ST/T wave changes 04/16/17 14:09 CT Abdomen and Pelvis with contrast Creator : Regulo Curiel MD FINDINGS: LOWER THORAX: Unremarkable. LIVER: There is fatty infiltration of the liver. GALLBLADDER AND BILE DUCTS: Gallbladder removed PANCREAS: Unremarkable. No gross lesion or ductal dilatation. SPLEEN: Unremarkable. ADRENALS: Unremarkable. No mass. KIDNEYS AND URETERS: 3 mm nonobstructing stone in the right kidney VASCULATURE: Unremarkable. No aortic aneurysm. BOWEL: Unremarkable. No obstruction. No gross mural thickening. APPENDIX: Normal appendix. PERITONEUM: Unremarkable. No free fluid. No free air. LYMPH NODES: Unremarkable. No enlarged lymph nodes. BLADDER: Unremarkable. REPRODUCTIVE: Hysterectomy. BONES: No acute fracture. IMPRESSION: No acute findings 04/16/17 14:[address] Perez, reviewed CT findings, stating patient can be discharged home and will schedule endoscopy outpatient. minimally elevated lipase, however pain improved. no ct e/o of pancreatitis. pt feels well for dc. dicussed results with pt and gi dr perez. agree with close outpt f/u 04/16/17 16:31 - Lab Interpretations Lab Results: 04/16/17 11:20 04/16/17 11:20 Lab Results 04/16/17 14:20: Urine Color Straw, Urine Appearance Clear, Urine pH 7.0, Ur Specific [place] <= 1.005, Urine Protein Negative, Urine Glucose (UA) Negative, Urine Ketones Negative, Urine Blood Negative, Urine Nitrate Negative, Urine Bilirubin Negative, Urine Urobilinogen 0.2, Ur Leukocyte Esterase Negative 04/16/17 11:20: Sodium 141, Potassium 3.8, Chloride 103, Carbon Dioxide 29, Anion Gap 12, BUN 13, Creatinine 0.8, Est GFR ( Amer) > 60, Est GFR (Non- Af Amer) > 60, Random Glucose 99, Calcium 10.5, Total Bilirubin 0.7, AST 21, ALT 29, Alkaline Phosphatase 40, Total Protein 7.0, Albumin 4.1, Globulin 2.9, Albumin/Globulin Ratio 1.4, Lipase 313 H 04/16/17 11:20: PT 12.8 H, INR 1.11 H, APTT 27.5 04/16/17 11:20: WBC 11.3 H D, RBC 4.36, Hgb 13.7, Hct 41.4, MCV 95.0, MCH 31.4, MCHC 33.1, RDW 12.6, Plt Count 168, MPV 10.4, Gran % 74.9 H, Lymph % (Auto) 16.3 L, [place] % (Auto) 8.6 H, Eos % (Auto) 0.1 L, Baso % (Auto) 0.1, Gran # 8.44 H, Lymph # (Auto) 1.8, [place] # (Auto) 1.0 H, Eos # (Auto) 0.0, Baso # (Auto) 0.01 I have reviewed the lab results: Yes - RAD Interpretation Radiology Orders: 04/16/17 11:34 ABD PELVIS PO & IV CONTRAST [CT] Stat - EKG Interpretation Interpreted by ED Physician: Yes Type: 12 lead EKG - Medication Orders Current Medication Orders: Discontinued Medications Acetaminophen (Tylenol 325mg Tab) 975 mg PO STAT STA Stop: 04/16/17 13:14 Last Admin: 04/16/17 13:15 Dose: 975 mg MAR Pain/Vitals Document 04/16/17 13:15 SE (Rec: 04/16/17 13:15 SE [id number]) Pain Reassessment Is This A Pain ReAssessment? No Sleep Is patient sleeping during reassessment? No Presence of Pain Presence of Pain Yes Pain Scale Used Pain Scale Used Numeric Location Pain Location Body Site headache Intensity 6 Sodium Chloride (Sodium Chloride 0.9%) 500 mls @ 1,000 mls/hr IV .Q30M STA Stop: 04/16/17 11:40 Last Admin: 04/16/17 11:42 Dose: 1,000 mls/hr eMAR Start Stop Document 04/16/17 11:42 SE (Rec: 04/16/17 11:42 SE [id number]) Intravenous Solution Start Date 04/16/17 Start Time 11:42 Ondansetron HCl (Zofran Inj) 4 mg IVP STAT STA Stop: 04/16/17 11:12 Last Admin: 04/16/17 11:42 Dose: 4 mg IVP Administration Document 04/16/17 11:42 SE (Rec: 04/16/17 11:42 SE [id number]) Charges for Administration # of IVP Administrations 1 Pantoprazole Sodium (Protonix Inj) 40 mg IVP STAT STA Stop: 04/16/17 11:12 Last Admin: 04/16/17 11:42 Dose: 40 mg IVP Administration Document 04/16/17 11:42 SE (Rec: 04/16/17 11:42 SE [id number]) Charges for Administration # of IVP Administrations 1 - Scribe Statement The provider has reviewed the documentation as recorded by the Scribe Jessy Price Provider Scribe Attestation: All medical record entries made by the Scribe were at my direction and personally dictated by me. I have reviewed the chart and agree that the record accurately reflects my personal performance of the history, physical exam, medical decision making, and the department course for this patient. I have also personally directed, reviewed, and agree with the discharge instructions and disposition. Disposition/Present on Arrival - Present on Arrival Any Indicators Present on Arrival: No History of DVT/PE: No History of Uncontrolled Diabetes: No Urinary Catheter: No History of Decub. Ulcer: No History Surgical Site Infection Following: None - Disposition Have Diagnosis and Disposition been Completed?: Yes Diagnosis: Abdominal pain Disposition: HOME/ ROUTINE Disposition Time: 02:00 Condition: STABLE Discharge Instructions (ExitCare): Acute Abdomen (Belly Pain), Adult (DC) Additional Instructions: please follow up with your gi doctor. return to er with worsening symptoms or concerns. Prescriptions: Pantoprazole Sodium [Protonix] 40 mg PO DAILY #10 tablet. Referrals: Francisco Estrada MD [Primary Care Provider] - Follow up with primary Anju Perez MD [Medical Doctor] - Follow up with primary Forms: [employer] (Romanian)
[2017-04-16] MEDS ORDERED: Iohexol 240 (50 ml) ONE (11:37)
[2017-04-16 11:38] LABS: BASO # 0.01 K/mm3 (0.0-2.0); BASO % 0.1 % (0.0-3.0); EOS % 0.1 % (1.5-5.0); GRAN # 8.44 (1.4-6.5); GRAN % 74.9 % (50.0-68.0); HEMOGLOBIN 13.7 g/dL (12.0-16.0); LYMPH # 1.8 (1.2-3.4); LYMPH % 16.3 % (22.0-35.0); MEAN CORPUSCULAR HEMOGLOBIN 31.4 pg (25.0-35.0); MEAN CORPUSCULAR HGB CONC 33.1 g/dl (31.0-37.0); MEAN PLATELET VOLUME 10.4 fl (7.0-11.0); MONO % 8.6 % (1.0-6.0); RBC 4.36 10^6/uL (3.5-6.1); RED CELL DISTRIBUTION WIDTH 12.6 % (11.5-14.5); WHITE BLOOD COUNT 11.3 10^3/ul (4.5-11.0)
[2017-04-16 11:42] LABS: ALB/GLOB RATIO 1.4 (1.1-1.8)
[2017-04-16 11:51] LABS: INR 1.11 (0.93-1.08); PROTHROMBIN TIME 12.8 SECONDS (9.4-12.5)
[2017-04-16 11:52] LABS: PARTIAL THROMBOPLASTIN TIME 27.5 Seconds (25.1-36.5)
[2017-04-16 11:57] LABS: ALBUMIN 4.1 g/dL (3.0-4.8); ALT/SGPT 29 U/L (7-56); AST/SGOT 21 U/L (14-36); BLOOD UREA NITROGEN 13 mg/dL (7-21); CALCIUM 10.5 mg/dL (8.4-10.5); GFR AFRICAN-AMERICAN > 60; GFR NON-AFRICAN AMERICAN > 60; LIPASE 313 U/L (23-300)
[2017-04-16] MEDS ORDERED: Iohexol 350 MG/100 ML VIAL ONE (13:07)
--- NOTE | 2017-04-16 14:06 | CT ---
PROCEDURE: CT Abdomen and Pelvis with contrast HISTORY: upper abd pain COMPARISON: None. TECHNIQUE: Contrast dose: 100 cc of Omni 350 Radiation dose: Total exam DLP = 390 mGy-cm. This CT exam was performed using one or more of the following dose reduction techniques: Automated exposure control, adjustment of the mA and/or kV according to patient size, and/or use of iterative reconstruction technique. FINDINGS: LOWER THORAX: Unremarkable. LIVER: There is fatty infiltration of the liver. GALLBLADDER AND BILE DUCTS: Gallbladder removed PANCREAS: Unremarkable. No gross lesion or ductal dilatation. SPLEEN: Unremarkable. ADRENALS: Unremarkable. No mass. KIDNEYS AND URETERS: 3 mm nonobstructing stone in the right kidney VASCULATURE: Unremarkable. No aortic aneurysm. BOWEL: Unremarkable. No obstruction. No gross mural thickening. APPENDIX: Normal appendix. PERITONEUM: Unremarkable. No free fluid. No free air. LYMPH NODES: Unremarkable. No enlarged lymph nodes. BLADDER: Unremarkable. REPRODUCTIVE: Hysterectomy. BONES: No acute fracture. OTHER FINDINGS: None. IMPRESSION: No acute findings
[2017-04-16 14:52] LABS: URINE BILIRUBIN NEGATIVE (NEGATIVE); URINE BLOOD NEGATIVE (NEGATIVE); URINE GLUCOSE (UA) NEGATIVE (NEGATIVE); URINE LEUKOCYTE ESTERASE NEGATIVE Leu/uL (NEGATIVE); URINE NITRATE NEGATIVE (NEGATIVE); URINE PROTEIN NEGATIVE mg/dL (<30 mg/dL); URINE UROBILINOGEN 0.2 E.U./dL (<1 E.U./dL)
[2017-04-16 14:53] LABS: URINE APPEARANCE CLEAR (CLEAR); URINE COLOR STRAW (YELLOW)
[2017-04-16 15:00] VITALS: BP 138/79; PULSE 89; RESP 16; O2SAT 100
--- NOTE | 2017-04-16 21:24 | CARD ---
APPROVED REPORT EKG Measurement Heart [id number] <Conclusion> Normal sinus rhythm Possible Left atrial enlargement Borderline ECG
== END 2017-04-16 14:57 | disposition home or self-care (01) ==
LOC: ED 10:20
DX: R10.9 Unspecified abdominal pain (principal); E11.9 Type 2 diabetes mellitus without complications; I10 Essential (primary) hypertension; E21.3 Hyperparathyroidism, unspecified; E78.5 Hyperlipidemia, unspecified
CPT/HCPCS: 74177; 80053; 81003; 83690; 85025; 85610; 85730; 93005; 96374; 96375; 99284; C9113; J2405; J7040; Q9966; Q9967

== ENCOUNTER 2017-05-25 07:04 | Day surgery (SDC) | payer MEDICARE ==
[2017-05-16 10:40] VITALS: BMI 24.9
[2017-05-25 07:33] VITALS: TEMP 98
[2017-05-25] MEDS ORDERED: Sodium Chloride 0.9% 1,000 ML IV SCH (08:45)
[2017-05-25] MEDS ORDERED: Propofol 10 mg/ml Inj (20 ML) ONE (09:23)
[2017-05-25 10:58] VITALS: BP 107/79; PULSE 79; RESP 16; O2SAT 99
== END 2017-05-25 11:56 | disposition home or self-care (01) ==
LOC: ENDO 07:04
PROVIDERS: ATTEND Internal Medicine Gastroenterology
DX: K57.30 Diverticulosis of large intestine without perforation or abscess without bleeding (principal); K21.0 Gastro-esophageal reflux disease with esophagitis; K29.50 Unspecified chronic gastritis without bleeding; K56.2 Volvulus; K64.8 Other hemorrhoids; R63.4 Abnormal weight loss; Z68.24 Body mass index [BMI] 24.0-24.9, adult; I10 Essential (primary) hypertension; I25.10 Atherosclerotic heart disease of native coronary artery without angina pectoris
CPT/HCPCS: 43239; 45380; 82948; 88305; 88312; 88342; J2001; J2704; J7040 ×2

== ENCOUNTER 2018-01-01 09:12 | Observation (INO) | payer MEDICARE ==
[2018-01-01 09:23] VITALS: BMI 26.2
[2018-01-01 09:42] LABS: BASO # 0.02 K/mm3 (0.0-2.0); BASO % 0.3 % (0.0-3.0); EOS % 0.4 % (1.5-5.0); GRAN # 4.83 (1.4-6.5); GRAN % 67.2 % (50.0-68.0); LYMPH # 1.9 (1.2-3.4); LYMPH % 25.7 % (22.0-35.0); MEAN CELL VOLUME 91.5 fl (80.0-105.0); MEAN CORPUSCULAR HEMOGLOBIN 31.8 pg (25.0-35.0); MEAN CORPUSCULAR HGB CONC 34.7 g/dl (31.0-37.0); MEAN PLATELET VOLUME 10.3 fl (7.0-11.0); MONO # 0.5 (0.1-0.6); MONO % 6.4 % (1.0-6.0); RBC 4.72 10^6/uL (3.5-6.1); RED CELL DISTRIBUTION WIDTH 12.5 % (11.5-14.5); WHITE BLOOD COUNT 7.2 10^3/uL (4.5-11.0)
--- NOTE | 2018-01-01 09:44 | ED PDOC ---
Arrival/HPI - General Historian: Patient - History of Present Illness Narrative History of Present Illness (Text): 01/01/18 09:39 77yr old female with hx of cardiac stents presents today with 3 day history of intermittent left sided chest pain. pt states pain radiates into left arm. pt describes the pain as a heaviness and sometimes a sharp pain. pt denies radiation of pain into the back. pt denies fever/chills. denies uri symptoms. pt denies shortness of breath. no n/v/d/c. pt states she has noticed swelling to both lower extremities, worse in the left leg. denies trauma or injury. no fever/chills. no medications have been taken at home for pain. no other complaints. Past Medical History - Provider Review Nursing Documentation Reviewed: Yes - Travel History Have you recently traveled outside [place] w/in the past 3 mons?: No - Infectious Disease Hx of Infectious Diseases: None - Tetanus Immunization Tetanus Immunization: Unknown - Cardiac Hx Cardiac Disorders: No - Pulmonary Hx Respiratory Disorders: Yes Hx Pneumonia: Yes - Neurological Hx Neurological Disorder: No - HEENT Hx HEENT Disorder: Yes Hx Cataracts: Yes (rt eye) Hx Epistaxis: Yes ("once in a while") Hx Glaucoma: Yes - Renal Hx Renal Disorder: Yes Hx Kidney Stones: Yes - Endocrine/Metabolic Hx Endocrine Disorders: No - Hematological/Oncological Hx Blood Disorders: No - Integumentary Hx Dermatological Disorder: No - Musculoskeletal/Rheumatological Hx Musculoskeletal Disorders: Yes Hx Arthritis: Yes - Gastrointestinal Hx Gastrointestinal Disorders: Yes (bloating and gas) Hx Gall Bladder Disease: Yes - Genitourinary/Gynecological Hx Genitourinary Disorders: Yes Hx Urinary Tract Infection: Yes - Psychiatric Hx Psychophysiologic Disorder: No Hx Substance Use: No - Anesthesia Hx Anesthesia Reactions: No Hx Malignant Hyperthermia: No Family/Social History - Physician Review Nursing Documentation Reviewed: Yes Family/Social History: Unknown Family HX Smoking Status: Never Smoked Hx Alcohol Use: No Hx Substance Use: No Allergies/Home Meds Allergies/Adverse Reactions: Allergies ceftriaxone Allergy (Verified 01/01/18 09:51) STOMACH PROBLEMS chlorzoxazone Allergy (Verified 01/01/18 09:51) EXTREMLY TIRED diltiazem HCl [From Cardizem] Adverse Reaction (Severe, Verified 01/01/18 09:51) HEADACHE nitroglycerin [From Nitro-Dur] Adverse Reaction (Severe, Verified 01/01/18 09:51) HEADACHE aspirin Adverse Reaction (Unknown, Verified 01/01/18 09:51) AVOIDS MED amoxicillin [From Augmentin] Adverse Reaction (Verified 01/01/18 09:51) STOMACH PROBLEMS cinacalcet [From Sensipar] Adverse Reaction (Verified 01/01/18 09:51) STOMACH CRAMPS clavulanic acid [From Augmentin] Adverse Reaction (Verified 01/01/18 09:51) STOMACH PROBLEMS UNKNOWN ANTIBIOTIC Allergy (Uncoded 01/01/18 09:51) RASH Home Medications: Home Meds Medication Instructions Recorded Confirmed Atorvastatin Calcium [Lipitor] 10 mg PO DIN 04/08/13 05/25/17 Glimepiride 1 mg PO BID 10/26/15 05/25/17 amLODIPine [Norvasc] 5 mg PO QAM 10/26/15 05/25/17 Cholecalciferol (Vitamin D3) 2,000 unit PO DAILY 05/11/16 05/25/17 [Vitamin D3] Lisinopril [Zestril] 10 mg PO DAILY 05/11/16 05/25/17 Calcitonin,[place],Synthetic 200 iu NS DAILY 12/13/16 05/25/17 [Calcitonin-[place]] Fenofibrate [Triglide] 160 mg PO DAILY 12/13/16 05/25/17 Pantoprazole [Protonix] 40 mg PO DAILY 12/13/16 05/25/17 Metoprolol Succinate XL [Toprol XL] 25 mg PO DAILY 05/16/17 05/25/17 Review of Systems - Review of Systems Constitutional: absent: Fatigue, Fevers Respiratory: absent: SOB, Cough Cardiovascular: Chest Pain. absent: Palpitations Gastrointestinal: absent: Abdominal Pain, Nausea, Vomiting Genitourinary Female: absent: Dysuria, Frequency, Hematuria Musculoskeletal: Joint Swelling (+ lower leg swelling bilaterally. ). absent: Back Pain, Neck Pain Skin: absent: Rash, Pruritis Neurological: absent: Headache, Dizziness Psychiatric: absent: Anxiety, Depression Physical Exam Vital Signs Reviewed: Yes Vital Signs Temp Pulse Resp BP Pulse Ox 01/01/18 09:22 97.6 F 96 H 19 175/86 H 97 Temperature: Afebrile Blood Pressure: Hypertensive Pulse: Regular Respiratory Rate: Normal Appearance: Positive for: Well-Appearing, Non-Toxic, Comfortable Pain Distress: None Mental Status: Positive for: Alert and Oriented X 3 - Systems Exam Head: Present: Atraumatic Mouth: Present: Moist Mucous Membranes Neck: Present: Normal Range of Motion Respiratory/Chest: Present: Clear to Auscultation, Good Air Exchange. No: Respiratory Distress, Accessory Muscle Use Cardiovascular: Present: Regular Rate and Rhythm, Normal S1, S2. No: Murmurs Abdomen: No: Tenderness, Distention, Rebound, Guarding Back: Present: Normal Inspection Upper Extremity: Present: Normal ROM Lower Extremity: Present: Edema (minimal bilateral lower leg edema, left greater than right. non pitting), NORMAL PULSES Neurological: Present: GCS=15, Speech Normal Skin: Present: Warm, Dry, Normal Color. No: Rashes Psychiatric: Present: Alert, Oriented x 3 Medical Decision Making ED Course and Treatment: 01/01/18 09:50 pt with chest pain ; vitals stable cbc; wnl cmp; glucose 189 trop: wnl BNP; wnl ekg; normal sinus rhythm at 90 bpm normal axis no ST elevations normal intervals QTc 467 cxr: No active disease as read by the radiologist Venous duplex of the bilateral lower legs asa 244mg given pO ; pt took baby aspirin this morning. pt reassessment; pt non toxic well; no distress. discussed results in depth; case discussed with Dr. Riley will Admit observational status to Tele for chest pain r/o acs. impression; chest pain Admit observational status to tele; - RAD Interpretation Radiology Orders: 01/01/18 09:34 CHEST PORTABLE [RAD] Stat Disposition/Present on Arrival - Present on Arrival Any Indicators Present on Arrival: No History of DVT/PE: No History of Uncontrolled Diabetes: No Urinary Catheter: No History of Decub. Ulcer: No History Surgical Site Infection Following: None - Disposition Have Diagnosis and Disposition been Completed?: Yes Diagnosis: Chest pain Disposition: HOSPITALIZED Disposition Time: 10:11 Patient Plan: Observation Patient Problems: Current Active Problems Problem Status Onset Chest pain Acute Condition: FAIR Discharge Instructions (ExitCare): Chest Pain (ED)
[2018-01-01 09:52] LABS: ALB/GLOB RATIO 1.4 (1.1-1.8); ALT/SGPT 33 U/L (7-56); AST/SGOT 25 U/L (14-36); BLOOD UREA NITROGEN 12 mg/dL (7-21); CALCIUM 9.1 mg/dL (8.4-10.5); GFR NON-AFRICAN AMERICAN > 60
--- NOTE | 2018-01-01 09:52 | RAD ---
Date of service: 01/01/2018 HISTORY: cp COMPARISON: 05/11/2016 FINDINGS: LUNGS: No active pulmonary disease. PLEURA: No significant pleural effusion identified, no pneumothorax apparent. CARDIOVASCULAR: Aortic calcification Normal cardiac size. No pulmonary vascular congestion. OSSEOUS STRUCTURES: No significant abnormalities. VISUALIZED UPPER ABDOMEN: Normal. OTHER FINDINGS: None. IMPRESSION: No active disease.
[2018-01-01 10:04] LABS: B-TYPE NATRIURETIC PEPTIDE 55.2 pg/mL (0-450); TROPONIN I < 0.01 ng/mL
[2018-01-01 10:48] LABS: URINE BILIRUBIN NEGATIVE (NEGATIVE); URINE BLOOD TRACE-INTACT (NEGATIVE); URINE GLUCOSE (UA) NEGATIVE (NEGATIVE); URINE LEUKOCYTE ESTERASE NEGATIVE Leu/uL (NEGATIVE); URINE PROTEIN TRACE mg/dL (<30 mg/dL); URINE UROBILINOGEN 0.2 E.U./dL (<1 E.U./dL)
--- NOTE | 2018-01-01 11:00 | CP.PCM.HP ---
<Neil Salcedo - Last Filed: 01/01/18 16:22> History of Present Illness - History of Present Illness History of Present Illness: Neil Salcedo, PGY1 Hospital H&P This is a 77 year old female with PMH of CAD s/p cardiac stents in the proximal and mid LAD in 2016, NIDDM, arthitis, HTN, and HLD presenting to the hospital for 3 day history of chest pain. CP radiated to the left arm, characterize as sharp, intermittant, began at rest, rated 6/10 at worst and better with tyelenol. She admits to chronic history of bloating and current chest pain feels different than abdominal bloating. She was at cardiac rehab yesterday and used a bicycle for 40 minutes and noticed B/L leg swelling upon returning home. At time of examination, she states chest pain has resolved and denies SOB, fevers, chil ls, nausea, vomiting, back pain, abdominal pain, diarrhea, constipation, urinary complaints, numbness, tingling, recent sickness, trauma and travel. 12 point ROS noted here, otherwise unremarkable. PMD: Dr. Estrada PMH: as above SH: quit smoking 50 years ago, smoked 1 pack per day for 8 years prior. Denies drinking and drugs Sx: cholecystectomy, cardiac stents in 2016, hysrerectomy, lump from right breast removed several years ago FH: mom had DM, CAD and SC. Father had CVA All: ceftriaxone, diltiazem, nitroglycerin, chlorzoxazone Meds: per MAR Present on Admission - Present on Admission Any Indicators Present on Admission: No Past Patient History - Infectious Disease Hx of Infectious Diseases: None - Tetanus Immunizations Tetanus Immunization: Unknown - Past Social History Smoking Status: Former Smoker - CARDIAC Hx Cardiac Disorders: No - PULMONARY Hx Respiratory Disorders: Yes Hx Pneumonia: Yes - NEUROLOGICAL Hx Neurological Disorder: No - HEENT Hx HEENT Problems: Yes Hx Cataracts: Yes (rt eye) Hx Epistaxis: Yes ("once in a while") Hx Glaucoma: Yes - RENAL Hx Chronic Kidney Disease: Yes Hx Kidney Stones: Yes - ENDOCRINE/METABOLIC Hx Endocrine Disorders: No - HEMATOLOGICAL/ONCOLOGICAL Hx Blood Disorders: No - INTEGUMENTARY Hx Dermatological Problems: No - MUSCULOSKELETAL/RHEUMATOLOGICAL Hx Musculoskeletal Disorders: Yes Hx Arthritis: Yes - GASTROINTESTINAL Hx Gastrointestinal Disorders: Yes (bloating and gas) Hx Gall Bladder Disease: Yes - GENITOURINARY/GYNECOLOGICAL Hx Genitourinary Disorders: Yes Hx Urinary Tract Infection: Yes - PSYCHIATRIC Hx Psychophysiologic Disorder: No Hx Substance Use: No - SURGICAL HISTORY Hx Surgeries: Yes (OCT 2016- 2 STENTS) - ANESTHESIA Hx Anesthesia Reactions: No Hx Malignant Hyperthermia: No Meds Allergies/Adverse Reactions: Allergies Allergy/AdvReac Type Severity Reaction Status Date / Time ceftriaxone Allergy STOMACH Verified 01/01/18 15:19 PROBLEMS chlorzoxazone Allergy EXTREMLY Verified 01/01/18 15:19 TIRED diltiazem HCl [From Cardizem] AdvReac Severe HEADACHE Verified 01/01/18 15:19 nitroglycerin AdvReac Severe HEADACHE Verified 01/01/18 15:19 [From Nitro-Dur] aspirin AdvReac Unknown Tolerates Verified 01/01/18 15:19 81mg chewable only-uneasy on GI w/ other types amoxicillin [From Augmentin] AdvReac STOMACH Verified 01/01/18 15:19 PROBLEMS cinacalcet [From Sensipar] AdvReac STOMACH Verified 01/01/18 15:19 CRAMPS clavulanic acid AdvReac STOMACH Verified 01/01/18 15:19 [From Augmentin] PROBLEMS UNKNOWN ANTIBIOTIC Allergy RASH Uncoded 01/01/18 15:19 Physical Exam - Constitutional Appears: No Acute Distress - Head Exam Head Exam: ATRAUMATIC, NORMAL INSPECTION - Eye Exam Eye Exam: EOMI Pupil Exam: PERRL - ENT Exam ENT Exam: Mucous Membranes Moist - Neck Exam Neck exam: Positive for: Normal Inspection - Respiratory Exam Respiratory Exam: Clear to Auscultation Bilateral. absent: Accessory Muscle Use, Wheezes, Respiratory Distress - Cardiovascular Exam Cardiovascular Exam: REGULAR RHYTHM, +S1, +S2. absent: Tachycardia - GI/Abdominal Exam GI & Abdominal Exam: Normal Bowel Sounds. absent: Firm, Guarding - Extremities Exam Extremities exam: Positive for: pedal pulses present. Negative for: calf tenderness Additional comments: B/L lower extremity swelling appreciated - Back Exam Back exam: NORMAL INSPECTION - Neurological Exam Neurological exam: Alert, CN II-XII Intact, Oriented x3 - Skin Skin Exam: Normal Color, Warm Results - Vital Signs Recent Vital Signs: Last Vital Signs Temp 97.6 F 01/01/18 09:22 Pulse 75 01/01/18 09:42 Resp 19 01/01/18 09:42 BP 172/77 H 01/01/18 09:42 Pulse Ox 98 01/01/18 09:42 - Labs Result Diagrams: 01/01/18 09:30 01/01/18 09:30 Labs: Laboratory Results - last 24 hr 01/01/18 01/01/18 09:30 09:30 WBC 7.2 RBC 4.72 Hgb 15.0 Hct 43.2 MCV 91.5 D MCH 31.8 MCHC 34.7 RDW 12.5 Plt Count 164 MPV 10.3 Gran % 67.2 Lymph % (Auto) 25.7 [place] % (Auto) 6.4 H Eos % (Auto) 0.4 L Baso % (Auto) 0.3 Gran # 4.83 Lymph # (Auto) 1.9 [place] # (Auto) 0.5 Eos # (Auto) 0.0 Baso # (Auto) 0.02 Sodium 140 Potassium 3.5 L Chloride 104 Carbon Dioxide 28 Anion Gap 12 BUN 12 Creatinine 0.5 L Est GFR ( Amer) > 60 Est GFR (Non-Af Amer) > 60 Random Glucose 189 H Calcium 9.1 Magnesium 1.5 L Total Bilirubin 0.6 AST 25 ALT 33 Alkaline Phosphatase 67 Lactate Dehydrogenase 481 Total Creatine Kinase 43 Troponin I < 0.01 NT-Pro-B Natriuret Pep 55.2 Total Protein 7.0 Albumin 4.0 Globulin 3.0 Albumin/Globulin Ratio 1.4 Assessment & Plan - Assessment and Plan (Free Text) Assessment: This is a 77 year old female with PMH of CAD s/p cardiac stents in the proximal and mid LAD in 2015, NIDDM, arthitis, HTN, HLD presenting to the hospital for 3 day history of chest pain. Plan: Chest pain -troponins x2 are negative. Third troponin pending [id number] -initial EKG shows NSR at 90bpm with no ST changes. Serial EKG pending -CXR did not show active disease, f/u official read -hx of cardiac stents -echo 11/2016 showed mild to moderate MR, mild TR, mild pulm HTN, EF > 60% -stress test 11/2016 showed normal SPECT perfusion study, no significant change from 09/2015 -Cardiology on consult, Dr. Molina -per cardiology, ok to discharge tomorrow if blood work/imaging are unremarkable and f/u outpatient for further cardiac workup -duplex LE shows no clots Hypokalemia -repleted, f/u AM labs Hypomagesemia -repleted, f/u AM labs Hx NIDDM -insulin low sliding scale -accuchecks -Al1 pending Hx CAD -continue ASA, lipitor -lipid panel pending Hx HTN -continue home BP meds PPX with protonix Patient seen and case discussed with attending, Dr. Riley <Mamie Riley R - Last Filed: 01/01/18 19:00> Results - Vital Signs Recent Vital Signs: Last Vital Signs Temp 98.3 F 01/01/18 17:44 Pulse 73 01/01/18 17:44 Resp 20 01/01/18 17:44 BP 137/77 01/01/18 17:44 Pulse Ox 98 01/01/18 13:32 - Labs Result Diagrams: 01/01/18 09:30 01/01/18 09:30 Labs: Laboratory Results - last 24 hr 01/01/18 01/01/18 01/01/18 09:30 09:30 10:30 WBC 7.2 RBC 4.72 Hgb 15.0 Hct 43.2 MCV 91.5 D MCH 31.8 MCHC 34.7 RDW 12.5 Plt Count 164 MPV 10.3 Gran % 67.2 Lymph % (Auto) 25.7 [place] % (Auto) 6.4 H Eos % (Auto) 0.4 L Baso % (Auto) 0.3 Gran # 4.83 Lymph # (Auto) 1.9 [place] # (Auto) 0.5 Eos # (Auto) 0.0 Baso # (Auto) 0.02 Sodium 140 Potassium 3.5 L Chloride 104 Carbon Dioxide 28 Anion Gap 12 BUN 12 Creatinine 0.5 L Est GFR ( Amer) > 60 Est GFR (Non-Af Amer) > 60 Random Glucose 189 H Calcium 9.1 Magnesium 1.5 L Total Bilirubin 0.6 AST 25 ALT 33 Alkaline Phosphatase 67 Lactate Dehydrogenase 481 Total Creatine Kinase 43 Troponin I < 0.01 NT-Pro-B Natriuret Pep 55.2 Total Protein 7.0 Albumin 4.0 Globulin 3.0 Albumin/Globulin Ratio 1.4 Urine Color Yellow Urine Appearance Clear Urine pH 6.0 Ur Specific [place] 1.020 Urine Protein Trace H Urine Glucose (UA) Negative Urine Ketones Negative Urine Blood Trace-intact H Urine Nitrate Negative Urine Bilirubin Negative Urine Urobilinogen 0.2 Ur Leukocyte Esterase Negative Urine RBC 2 - 5 Urine WBC 0 - 2 Ur Epithelial Cells 4 - 5 Urine Bacteria Many Urine Other [place] 01/01/18 01/01/18 12:50 18:00 WBC RBC Hgb Hct MCV MCH MCHC RDW Plt Count MPV Gran % Lymph % (Auto) [place] % (Auto) Eos % (Auto) Baso % (Auto) Gran # Lymph # (Auto) [place] # (Auto) Eos # (Auto) Baso # (Auto) Sodium Potassium Chloride Carbon Dioxide Anion Gap BUN Creatinine Est GFR ( Amer) Est GFR (Non-Af Amer) Random Glucose Calcium Magnesium Total Bilirubin AST ALT Alkaline Phosphatase Lactate Dehydrogenase Total Creatine Kinase Troponin I < 0.01 < 0.01 NT-Pro-B Natriuret Pep Total Protein Albumin Globulin Albumin/Globulin Ratio Urine Color Urine Appearance Urine pH Ur Specific [place] Urine Protein Urine Glucose (UA) Urine Ketones Urine Blood Urine Nitrate Urine Bilirubin Urine Urobilinogen Ur Leukocyte Esterase Urine RBC Urine WBC Ur Epithelial Cells Urine Bacteria Urine Other Attending/Attestation - Attestation I have personally seen and examined this patient.: Yes I have fully participated in the care of the patient.: Yes I have reviewed all pertinent clinical information: Yes Notes (Text): Patient seen and examined by me with resident at 11AM with resident 01/01/18. Case including HPI, physical exam, and assessment and plan discussed with resident. Agree with above with following additions/corrections. Patient is a 77-year-old female with past medical history significant for coronary artery disease status post stent placement, [id number] type 2 diabetes, arthritis, hypertension, and hyperlipidemia that presented to the emergency room with chest pain. Patient states that yesterday she was on a bicycle for cardiac rehabilitation for approximately 40 minutes. She went home and took a shower. When she sat down and lift her feet up, she noted that her feet were swollen which she states has never happened before. She denies any pain in the area. She states that she was also getting intermittent chest pain for approximately 4-5 days. She states that when she woke up this morning, she again had the chest pain which brought her into the emergency room. The pain is mid sternal and radiates to her left arm and back. States the pain lasted couple of hours and then goes away. She describes the pain as "sharp and heavy like bricks." She states the pain seems to occur mostly in the mornings. He states that this morning she felt "sick to my stomach" when she was having the chest pain. However she did not have any vomiting. She states that a couple of days ago she also felt some burning in her chest that went up to her throat. She states that she does have a history of bad acid reflux. She denies any shortness of breath. No headaches or dizziness. No abdominal pain. No fevers or chills. No dysuria. No diarrhea or constipation. No neck pain or back pain. 12 point review of systems reviewed by me. See above HPI, all other systems negative. Family history. Mother and had diabetes, heart disease. The past away and had a history of CVA. Medications at home reviewed by me. Physical exam: General: Awake and alert sitting up in bed in no acute distress HEENT: Normocephalic, atraumatic. Extraocular muscles intact, pupils equal and reactive, no scleral icterus. Oropharynx is pink and moist. Neck is supple. Hearing grossly intact. Ears and nose externally unremarkable. Cardiovascular: Regular rhythm. Normal S1 and S2. Positive systolic murmur. No rubs or gallops appreciated Pulmonary: Normal respiratory effort. No rhonchi, rales, or wheezing appreciated. Gastrointestinal: Soft, nondistended. Nontender. Positive bowel sounds all 4 quadrants. No guarding. Musculoskeletal: Moves all extremities. No calf tenderness. CVA tenderness. Positive bilateral lower extremity pitting edema. Central nervous system: AAO x3, CN 2-12 grossly intact. Dermatologic: Skin warm and dry. Assessment and plan: Patient is a 77-year-old female with past medical history significant for coronary artery disease status post stent placement, [id number] type 2 diabetes, arthritis, hypertension, and hyperlipidemia that presented to the emergency room with chest pain. 1. Chest pain patient with history of coronary artery disease. Rule out ACS. Troponins 2 within normal limits. Follow-up third troponin. Chest x-ray as read by me shows no active disease. Follow-up official results. Cardiology following, recommendations appreciated. Continue aspirin, lisinopril, metoprolol, and Lipitor. Lipid panel, hemoglobin A1c, and TSH. 2-D echo on 12/13/2016 per driving teacher showed mild LVH with good LV function, aortic sclerosis without stenosis, mild pulmonary hypertension, mild trace regurgitation, mild to moderate mitral regurgitation. Monitor on telemetry. 2. GERD. Placed on Protonix 40 mg daily. Patient will need to continue follow-up with her hydraulic engineer Dr. Perez as an outpatient. 3. Bilateral lower extremity edema. Pending venous Dopplers to rule out DVT 4. Hypokalemia. Patient given potassium. Follow-up repeat labs in a.m. 5. Hypomagnesemia. Given magnesium sulfate. Follow up repeat labs in a.m. 6. Insulin-dependent type 2 diabetes. Placed on insulin sliding scale. Monitor Accu-Cheks. All of hemoglobin A1c. 7. Coronary artery disease status post placement. Continue aspirin, Lipitor, metoprolol, and lisinopril. Cardiology following, recommendations appreciated. 8. Hyperlipidemia. Continue Lipitor. 9. Essential hypertension. Continue home metoprolol and lisinopril. 10. Patient is a full code. Case was discussed in detail with the patient, patient's daughter at bedside, and driving teacher Dr. Molina regarding current diagnosis and treatment plan. All questions answered.
[2018-01-01 11:06] LABS: URINE APPEARANCE CLEAR (CLEAR); URINE COLOR YELLOW (YELLOW)
[2018-01-01 11:26] LABS: URINE BACTERIA MANY (NEG); URINE WBC 0 - 2 /hpf (0-6)
--- NOTE | 2018-01-01 12:27 | CARD ---
APPROVED REPORT Date of service: 01/01/2018 EKG Measurement Heart [id number] <Conclusion> Normal sinus rhythm Possible Left atrial enlargement Borderline ECG
[2018-01-01] MEDS ORDERED: Potassium Chloride 20 mEq ER Tab PO STA (13:10)
[2018-01-01] MEDS ORDERED: Magnesium Sulfate 1 gm in D5W 1 GM/100 ML BAG IVPB ONE (14:02)
[2018-01-01] MEDS ORDERED: Magnesium Sulfate 2 gm/50 ml 2 GM/50 ML BAG IVPB ONE (14:06)
[2018-01-01] MEDS ORDERED: Pneumococcal 23-Valent Vaccine IM ONE (15:44)
[2018-01-01] MEDS ORDERED: Influenza Vaccine 60 mcg/0.5 mL SYR (4YR UP) IM ONE (15:44)
[2018-01-01] MEDS: Insulin Reg-LOW-Coverage SC SCH ×2 (17:35→23:51)
--- NOTE | 2018-01-01 19:33 | US ---
HISTORY: Leg pain and swelling. Evaluate for DVT PHYSICIAN(S): Jet Aguilar MD. TECHNIQUE: Duplex sonography and color-flow Doppler with graded compression were used to evaluate the deep venous systems of both lower extremities. FINDINGS: The visualized deep venous systems of both lower extremities are sonographically normal and compressible. Normal wave forms and augmentation are seen. There is no sonographic evidence for deep venous thrombosis in the visualized segments of both lower extremities. IMPRESSION: No sonographic evidence for deep venous thrombosis in the visualized segments of both lower extremities.
--- NOTE | 2018-01-01 19:45 | CARD ---
APPROVED REPORT Date of service: 01/01/2018 EKG Measurement Heart [id number] <Conclusion> Normal sinus rhythm Normal ECG
--- NOTE | 2018-01-01 20:24 | CON ---
DATE: 01/01/2018 CARDIOLOGY CONSULTATION HISTORY: The patient is a 77-year-old woman who presents with 2 days of epigastric "funny feeling." The patient ambulated and exercised on the treadmill yesterday, a cardiac rehab for 40 minutes without symptoms. The patient's past medical history includes history of multivessel PTCA and stent. She underwent a stress test a year ago which was unremarkable for similar symptoms. In addition, she underwent a cardiac catheterization a year and a half ago for similar symptoms with no critical lesions and her stents were found to be patent, although she does have 50% lesions in one of the coronary vessels. Her past medical history also includes history of diabetes mellitus, hypercholesterolemia, and hypertension. SOCIAL HISTORY: The patient does not smoke. REVIEW OF SYSTEMS: Fourteen-point review of systems was reviewed. Her symptoms are better now. PHYSICAL EXAMINATION: VITAL SIGNS: Blood pressure is 132/73, the heart rates in the 70s. NECK: Negative JVD. LUNGS: Without rales. HEART: Reveals S1, S2. EXTREMITIES: Without edema. EKG shows normal sinus rhythm with no acute changes. LABORATORY DATA: Troponins are negative x2. Glucose 189 with a magnesium of 1.5, and a potassium of 3.5. Hemoglobin is 15. IMPRESSION: 1. Atypical chest pain. 2. No evidence for acute coronary syndrome. 3. History of multivessel PTCA and stent in the past. 4. Diabetes mellitus. 5. Hypertension. 6. Hypercholesterolemia. 7. Hypertension. Given these findings, we will obtain a third troponin. We will give her a trial of IV Protonix. I will replace her potassium and magnesium. If the troponins remain negative and her symptoms are better, we will consider discharge in the morning. We will arrange for an outpatient stress test. Jet Molina MD
[2018-01-02 00:11] VITALS: RESP 19
[2018-01-02 06:11] VITALS: TEMP 97.9; O2SAT 96
[2018-01-02 06:29] LABS: ALB/GLOB RATIO 1.3 (1.1-1.8); ALBUMIN 3.8 g/dL (3.0-4.8); ALT/SGPT 34 U/L (7-56); AST/SGOT 25 U/L (14-36); BLOOD UREA NITROGEN 11 mg/dL (7-21); GFR NON-AFRICAN AMERICAN > 60; HDL CHOLESTEROL 44 mg/dL (29-60)
[2018-01-02 06:39] LABS: LDL CHOLESTEROL 73 mg/dL (0-129)
[2018-01-02 06:40] LABS: BASO # 0.01 K/mm3 (0.0-2.0); BASO % 0.2 % (0.0-3.0); EOS % 0.7 % (1.5-5.0); GRAN # 3.57 (1.4-6.5); GRAN % 60.7 % (50.0-68.0); HEMOGLOBIN 14.1 g/dL (12.0-16.0); LYMPH # 1.8 (1.2-3.4); LYMPH % 30.4 % (22.0-35.0); MEAN CELL VOLUME 92.4 fl (80.0-105.0); MEAN CORPUSCULAR HEMOGLOBIN 31.3 pg (25.0-35.0); MEAN CORPUSCULAR HGB CONC 33.9 g/dl (31.0-37.0); MEAN PLATELET VOLUME 10.5 fl (7.0-11.0); MONO # 0.5 (0.1-0.6); RBC 4.5 10^6/uL (3.5-6.1); RED CELL DISTRIBUTION WIDTH 12.6 % (11.5-14.5); WHITE BLOOD COUNT 5.9 10^3/uL (4.5-11.0)
--- NOTE | 2018-01-02 08:35 | PN ---
DATE: 01/02/2018 CARDIOLOGY FOLLOWUP SUBJECTIVE: The patient is ambulating without symptoms. Her symptoms are much improved with IV Protonix. PHYSICAL EXAMINATION: VITAL SIGNS: Stable. NECK: Negative JVD. LUNGS: Without rales. HEART: Reveals S1 and S2. EXTREMITIES: Without edema. LABORATORY DATA: Hemoglobin is 14. Chemistries: BUN and creatinine unremarkable. Troponins are negative. ASSESSMENT: 1. Improvement of her chest pain. 2. No exercise induced chest pain. 3. No evidence of acute coronary syndrome. 4. Stable angina. 5. Diabetes mellitus. 6. Hypertension. 7. Peptic ulcer disease. PLAN: Given these findings, we will discontinue telemetry. We will discharge her on Protonix 40 daily. We will have the patient reevaluated by Dr. Perez for possible endoscopy, which can be done as an outpatient. Jet Molina MD
[2018-01-02] MEDS: Insulin Reg-LOW-Coverage SC SCH ×2 (08:46→11:49)
[2018-01-02] MEDS ORDERED: Metoprolol Succinate 25 mg XL Tab PO SCH (10:00)
[2018-01-02] MEDS ORDERED: Calcitonin 200 Int Units/Inh Nasal Spray (3.7 ml) NS SCH (10:00)
[2018-01-02] MEDS ORDERED: Pantoprazole 40 mg EC Tab PO SCH (10:00)
[2018-01-02 10:54] VITALS: BP 157/80; PULSE 86
--- NOTE | 2018-01-02 17:26 | CP.PCM.DIS ---
Provider - Provider Date of Admission: 01/01/18 10:11 Attending physician: Mamie Riley DO Consults: Cardiology, Dr. Molina Time Spent in preparation of Discharge (in minutes): 35 Hospital Course - Lab Results Lab Results: Most Recent Lab Values WBC 5.9 10^3/uL (4.5-11.0) 01/02/18 05:00 RBC 4.50 10^6/uL (3.5-6.1) 01/02/18 05:00 Hgb 14.1 g/dL (12.0-16.0) 01/02/18 05:00 Hct 41.6 % (36.0-48.0) 01/02/18 05:00 MCV 92.4 fl (80.0-105.0) 01/02/18 05:00 MCH 31.3 pg (25.0-35.0) 01/02/18 05:00 MCHC 33.9 g/dl (31.0-37.0) 01/02/18 05:00 RDW 12.6 % (11.5-14.5) 01/02/18 05:00 Plt Count 158 10^3/uL (120.0-450.0) 01/02/18 05:00 MPV 10.5 fl (7.0-11.0) 01/02/18 05:00 Gran % 60.7 % (50.0-68.0) 01/02/18 05:00 Lymph % (Auto) 30.4 % (22.0-35.0) 01/02/18 05:00 [place] % (Auto) 8.0 % (1.0-6.0) H 01/02/18 05:00 Eos % (Auto) 0.7 % (1.5-5.0) L 01/02/18 05:00 Baso % (Auto) 0.2 % (0.0-3.0) 01/02/18 05:00 Gran # 3.57 (1.4-6.5) 01/02/18 05:00 Lymph # (Auto) 1.8 (1.2-3.4) 01/02/18 05:00 [place] # (Auto) 0.5 (0.1-0.6) 01/02/18 05:00 Eos # (Auto) 0.0 (0.0-0.7) 01/02/18 05:00 Baso # (Auto) 0.01 K/mm3 (0.0-2.0) 01/02/18 05:00 Sodium 140 mmol/L (132-148) 01/02/18 06:00 Potassium 3.7 mmol/L (3.6-5.0) 01/02/18 06:00 Chloride 104 mmol/L (98-107) 01/02/18 06:00 Carbon Dioxide 29 mmol/L (21-33) 01/02/18 06:00 Anion Gap 10 (10-20) 01/02/18 06:00 BUN 11 mg/dL (7-21) 01/02/18 06:00 Creatinine 0.6 mg/dl (0.7-1.2) L 01/02/18 06:00 Est GFR ( Amer) > 60 01/02/18 06:00 Est GFR (Non-Af Amer) > 60 01/02/18 06:00 POC Glucose (mg/dL) 219 mg/dL (65-110) H 01/02/18 11:27 Random Glucose 174 mg/dL (70-110) H 01/02/18 06:00 Hemoglobin A1c 7.0 % (4.2-6.5) H 01/02/18 06:00 Calcium 9.0 mg/dL (8.4-10.5) 01/02/18 06:00 Phosphorus 3.1 mg/dL (2.5-4.5) 01/02/18 06:00 Magnesium 1.8 mg/dL (1.7-2.2) 01/02/18 06:00 Total Bilirubin 0.7 mg/dL (0.2-1.3) 01/02/18 06:00 AST 25 U/L (14-36) 01/02/18 06:00 ALT 34 U/L (7-56) 01/02/18 06:00 Alkaline Phosphatase 65 U/L (38-126) 01/02/18 06:00 Lactate Dehydrogenase 481 U/L (333-699) 01/01/18 09:30 Total Creatine Kinase 43 U/L (35-230) 01/01/18 09:30 Troponin I < 0.01 ng/mL 01/01/18 18:00 NT-Pro-B Natriuret Pep 55.2 pg/mL (0-450) 01/01/18 09:30 Total Protein 6.8 g/dL (5.8-8.3) 01/02/18 06:00 Albumin 3.8 g/dL (3.0-4.8) 01/02/18 06:00 Globulin 3.0 gm/dL 01/02/18 06:00 Albumin/Globulin Ratio 1.3 (1.1-1.8) 01/02/18 06:00 Triglycerides 146 mg/dL (35-160) 01/02/18 06:00 Cholesterol 131 mg/dL (130-200) 01/02/18 06:00 LDL Cholesterol Direct 73 mg/dL (0-129) 01/02/18 06:00 HDL Cholesterol 44 mg/dL (29-60) 01/02/18 06:00 TSH 3rd Generation 2.03 mIU/mL (0.46-4.68) 01/02/18 06:00 PTH Intact Whole [place] 27 pg/mL (14-64) 01/01/18 12:00 Urine Color Yellow (YELLOW) 01/01/18 10:30 Urine Appearance Clear (CLEAR) 01/01/18 10:30 Urine pH 6.0 (4.7-8.0) 01/01/18 10:30 Ur Specific [place] 1.020 (1.005-1.035) 01/01/18 10:30 Urine Protein Trace mg/dL (<30 mg/dL) H 01/01/18 10:30 Urine Glucose (UA) Negative mg/dL (NEGATIVE) 01/01/18 10:30 Urine Ketones Negative mg/dL (NEGATIVE) 01/01/18 10:30 Urine Blood Trace-intact (NEGATIVE) H 01/01/18 10:30 Urine Nitrate Negative (NEGATIVE) 01/01/18 10:30 Urine Bilirubin Negative (NEGATIVE) 01/01/18 10:30 Urine Urobilinogen 0.2 E.U./dL (<1 E.U./dL) 01/01/18 10:30 Ur Leukocyte Esterase Negative Randy/uL (NEGATIVE) 01/01/18 10:30 Urine RBC 2 - 5 /hpf (0-2) 01/01/18 10:30 Urine WBC 0 - 2 /hpf (0-6) 01/01/18 10:30 Ur Epithelial Cells 4 - 5 /hpf (0-5) 01/01/18 10:30 Urine Bacteria Many (NEG) 01/01/18 10:30 Urine Other [place]ye[place] 01/01/18 10:30 - Hospital Course Hospital Course: Upon admission Ms. Dsouza is a 77 year old female with a past medical history of CAD s/p cardiac stents in the proximal and mid LAD in 2016, NIDDM, arthritis, HTN, and HLD who presented to the [facility] Emergency Department on 01/01 complaining of chest pain for three days. Patient stated that the pain began at rest, was sharp and intermittent, radiated to the left arm, and improved with Tylenol. Patient also complained of mild bilateral lower extremity swelling that began on 12/31 after using a stationary bicycle at cardiac rehab. On ROS, patient stated that chest pain had resolved and denied shortness of breath, fevers, chills, nausea, vomiting, diarrhea, constipation, urinary complaints, numbness, tingling, recent sickness, trauma and recent travel. Patient admitted to smoking one pack of cigarettes per day for eight years but quit 50 years ago. Patient stated that home medications included: glimepiride, fenofibrate, vitamin D3, calcitonin, atorvastatin, pantoprazole, metoprolol succinate, lisinopril, amlodipine and aspirin. Hospital course Troponins were followed and were negative X3. Chest x-ray showed no active disease and EKG showed HR 90 with NSR and possible left atrial enlargement. Lower extremity ultrasound was ordered and revealed no evidence of DVT. The following home medications were continued: amlodipine, aspirin, atorvastatin, calcitonin, fenofibrate, lisinopril, metoprolol succinate, and pantoprazole. Insulin was started for DM. Cardiology was consulted and recommended and increase in the dose of Protonix from 20 to 40 daily, a reevaluation by Dr. Perez/gastroenteroloy for a possible endoscopy as outpatient, and an outpatient stress test. A repeat EKG showed HR 73 with NSR. For a complete record of hospital stay, please refer to medical record. Upon discharge Patient is to follow-up with primary care doctor, Dr. Estrada, within 3-5 days of discharge. Patient is to follow-up with cardiology, Dr. Molina, on 01/10 and to undergo an outpatient stress test. Patient is to refrain from cardiac rehab until this test has been completed. Patient is to follow-up with gastroenterology for a possible endoscopy. Patient is to resume her home medications and to continue taking protonix 40 daily. To control lower extremity swelling, patient should consider purchasing compression stockings and elevate legs when at rest. These instructions were explained to the patient, and the patient understood. Discharge Exam - Head Exam Head Exam: ATRAUMATIC, NORMAL INSPECTION - Eye Exam Eye Exam: EOMI Pupil Exam: PERRL - ENT Exam ENT Exam: Mucous Membranes Moist - Respiratory Exam Respiratory Exam: Clear to PA & Lateral. absent: Accessory Muscle Use, Wheezes, Respiratory Distress - Cardiovascular Exam Cardiovascular Exam: REGULAR RHYTHM, +S1, +S2 - GI/Abdominal Exam GI & Abdominal Exam: Normal Bowel Sounds, Soft. absent: Distended, Firm, Guarding - Extremities Exam Extremities exam: normal inspection, pedal pulses present - Back Exam Back exam: NORMAL INSPECTION - Neurological Exam Neurological exam: Alert, Oriented x3 - Skin Skin Exam: Normal Color, Warm Discharge Plan - Discharge Medications Prescriptions: Pantoprazole [Protonix] 40 mg PO DAILY 30 Days #30 ect - Follow Up Plan Condition: FAIR Disposition: HOME/ ROUTINE Instructions: Acid Reflux (Gastroesophageal Reflux Disease), Adult (DC), Chest Pain (DC) Additional Instructions: Please follow up with your salesperson hearing aids Dr. Molina within 7 days of discharge. You are scheduled for a stress test with Dr. Molina on 01/11/18. Please follow up with your Primary care doctor, Dr. Estrada within 3-5 days of discharge. Cardiology recommends you to start protonix daily. Take on an empty stomach 30 minutes before breakfast Follow up with your signal tester Dr. Perez within 7 days of discharge. Please continue your home medications. Please return to the ED for any new or worsening symptoms. Referrals: Francisco Estrada MD [Family Provider] - Anju Perez MD [Medical Doctor] - Jet Molina MD [Staff Provider] -
== END 2018-01-02 11:56 | disposition home or self-care (01) ==
LOC: ED 09:12 → ERH 10:11 → 2RNO 13:30
PROVIDERS: ADMIT Hospitalist; ATTEND Hospitalist
DX: I25.118 Atherosclerotic heart disease of native coronary artery with other forms of angina pectoris (principal); I10 Essential (primary) hypertension; E11.9 Type 2 diabetes mellitus without complications; E78.00 Pure hypercholesterolemia, unspecified; E78.5 Hyperlipidemia, unspecified; E83.42 Hypomagnesemia; E87.6 Hypokalemia; H40.9 Unspecified glaucoma; K21.9 Gastro-esophageal reflux disease without esophagitis; K27.9 Peptic ulcer, site unspecified, unspecified as acute or chronic, without hemorrhage or perforation; Z79.4 Long term (current) use of insulin; Z79.899 Other long term (current) drug therapy; Z82.3 Family history of stroke; Z82.49 Family history of ischemic heart disease and other diseases of the circulatory system; Z83.3 Family history of diabetes mellitus; Z87.01 Personal history of pneumonia (recurrent); Z87.440 Personal history of urinary (tract) infections; Z87.442 Personal history of urinary calculi; Z87.891 Personal history of nicotine dependence; Z95.5 Presence of coronary angioplasty implant and graft
CPT/HCPCS: 36415; 71045; 80053; 80061; 81001; 82550; 82948; 83036; 83615; 83735; 83880; 83970; 84100; 84443; 84484; 85025; 93005; 93970; 96374; 96375; 96376; 99284; C9113; G0378

== ENCOUNTER 2018-03-08 08:32 | Outpatient (CLI) | payer MEDICARE | END 2018-03-08 08:33 | disposition home or self-care (01) | LOC: LAB 08:32 ==

== ENCOUNTER 2018-04-20 07:03 | Outpatient (CLI) | payer MEDICARE | END 2018-04-20 07:04 | disposition home or self-care (01) | LOC: LAB 07:03 ==

== ENCOUNTER 2018-05-09 05:39 | Outpatient (CLI) | payer MEDICARE | END 2018-05-09 05:40 | disposition home or self-care (01) | LOC: CARDIO 05:39 ==

== ENCOUNTER 2018-05-25 09:26 | Outpatient (CLI) | payer MEDICARE | END 2018-05-25 09:27 | disposition home or self-care (01) | LOC: RAD 09:26 ==

== ENCOUNTER 2018-06-28 08:20 | Outpatient (CLI) | payer MEDICARE | END 2018-06-28 08:21 | disposition home or self-care (01) | LOC: LAB 08:20 ==